=== PATIENT | female | born 1960 | race African-American/Black ===

== ENCOUNTER 2019-11-01 12:08 | Inpatient (IN) | payer OTHER ==
--- NOTE | 2019-11-01 12:53 | PDOC ---
History of Present Illness - General Chief Complaint: Blood Pressure Problem Stated Complaint: BLOOD PRESSURE PROBLEM Time Seen by Provider: 11/01/19 12:51 History Source: Patient Exam Limitations: No Limitations - History of Present Illness Initial Comments: 11/01/19 12:52 PCP: Marielena HPI: 59 yo F pmh htn presenting from PCP with hypertension in setting of not taking her home metoprolol 50mg before the appointment. Patient denies any symptoms whatsoever, stating she is just worried because the pressure is very high. She reports her pressure at home, when taking her metoprolol 50 mg daily fluctuate with the systolic ranging between 140 and 180. She states she knows s he should improve her diet and lose weight but she is now very anxious about the pressure. Denies any chest pain, nausea, vomiting, headache, changes in vision, tinnitus, weakness / numbness / tingling, abdominal or back pain, SOB. All: KNDA Meds: Metoprolol 50mg BID PMH: HTN PSH: Per chart Past History - Travel History Traveled outside of the country in the last 30 days: No Close contact w/someone who was outside of country & ill: No - Medical History Allergies/Adverse Reactions: Allergies Allergy/AdvReac Type Severity Reaction Status Date / Time No Known Allergies Allergy Verified 11/09/13 11:54 Home Medications: Ambulatory Orders Metformin HCl [Glucophage] 500 mg PO 11/01/19 Metoprolol Tartrate [Lopressor -] 50 mg PO BID 11/01/19 COPD: No HTN: Yes - Surgical History Abdominal Surgery: Yes Appendectomy: Yes - Reproductive History Is Patient Now?: No - Immunization History Immunization Up to Date: No - Psycho-Social/Smoking History Smoking History: Never smoked Have you smoked in the past 12 months: No Information on smoking cessation initiated: No - Substance Abuse Hx (Audit-C & DAST Scrn) How often the patient has a drink containing alcohol: Never Score: In Men: 4 or > Positive; In Women: 3 or > Positive: 0 Screen Result (Pos requires Nsg. Audit-10AR): Negative In the last yr the pt used illegal drug/Rx for NonMed reason: No Score: Yes response is considered Positive: 0 Screen Result (Positive result requires Nsg. DAST-10): Negative Review of Systems - Review of Systems Able to Perform ROS?: Yes Is the patient limited Nepali proficient: Yes Constitutional: No: Chills, Fever, Weakness HEENTM: No: Recent change in vision, Nose Congestion, Tinnitus, Throat Pain Respiratory: No: Cough, Orthopnea, Shortness of Breath, Wheezing, Productive cough Cardiac (ROS): No: Chest Pain, Edema, Irregular Heart Rate, Chest Tightness ABD/GI: No: Constipated, Diarrhea, Nausea, Vomiting : No: Burning, Dysuria, Frequency Musculoskeletal: No: Back Pain, Muscle Pain, Muscle Weakness, Neck Pain Integumentary: No: Bruising, Pruritus, Rash Neurological: No: Headache, Numbness, Tingling, Weakness, Unsteady Gait Psychiatric: No: Stressors, Change in Appetite Endocrine: No: Increased Thirst, Increased Urine, Change in Weight Hematologic/Lymphatic: No: Anemia, Blood Clots, Easy Bleeding All Other Systems: Reviewed and Negative *Physical Exam - Vital Signs Last Vital Signs Temp Pulse Resp BP Pulse Ox 98.3 F 70 16 203/100 H 99 11/01/19 12:11 11/01/19 12:11 11/01/19 12:11 11/01/19 12:11 11/01/19 12:11 - Physical Exam 11/01/19 12:52 Vitals reviewed, notable for hypertension 203/100 GEN: Well appearing, appears stated age, NAD, comfortable. AAOx3. HEENT: NCAT, EOMI, PERRL. Sclera anicteric, noninjected. No facial asymmetry. Moist mucous membranes. Normal voice. Trachea midline. CV: RRR, S1/S2, no murmurs / rubs / gallops appreciated. LUNG: CTABL, normal work of breathing. No wheezes, rales, rhonchi. No cough. Speaking full sentences. GI: Soft, NTND, +BS, no guarding, no rebound. No masses. EXTREMITIES: 2+ distal pulses. No clubbing / cyanosis / edema. No gross deformity in any extremity. SKIN: Warm, dry, no rashes appreciated, non-jaundiced. PSYCH: Normal mood and affect. Cooperative and appropriate. NEURO: CN grossly intact. Moving all extremities well. Normal strength and sensation grossly. Full Neuro: Strength 5+ biceps, triceps, intrinsic hand muscles, hip flexors / extensors / foot dorsiflexion / plantarflexion Sensation normal throughout to light touch Reflexes not assessed Romberg negative Hjlajf-wjvs-cpclti and heel-oseguera normal (+No dysmetria) Rapid alternating movements normal (No dysdiadokinesis) Pronator drift not assessed Gait normal Cranial nerves: CN 1: Not assessed CN 2: Normal visual jaime and acuity CN 3/4/6: EOMI CN 5: Normal facial sensation CN 7: Normal facial movement CN 8: Symmetric hearing soft sounds CN 9: Uvula midline and normal articulation CN 10: Uvula midline and normal articulation CN 11: Normal shrug / head turn strength CN 12: Normal tongue movement A&Ox3, normal remote and recent recall. ED Treatment Course - LABORATORY CBC & Chemistry Diagram: 11/01/19 16:45 11/01/19 16:45 Medical Decision Making - Medical Decision Making 11/01/19 12:52 59 yo F pmh htn presenting from PCP with hypertension in setting of not taking her home metoprolol 50mg before the appointment. History notable for elevated BP in setting of anxiety regarding pressure and holding home bp medication this morning, denies any symptoms bothering her. Exam notable for hypertension with otherwise normal vitals, normal neuro exam. - Patient s/p home Metoprolol 50mg approximately 1 hours ago Anticipated dispo: Home 11/01/19 16:37 Remains asymptomatic Given dose of hydrochlorothiazide Persistently hypertensive to 220+/100+ Labs, EKG, evening dose of metoprolol ordered 11/01/19 18:15 EKbpm, NSR, normal axis, normal intervals QTc 428, no ischemic changes 11/01/19 18:33 - Despite home medications and addition of hydrochlorothiazide remained hypertensive to 200s - Ordered for 10 Lopressor - Labs unremarkable aside from 1+ blood on UA Dispo: Med/Surg for medication optimization and persistent hypertension Discharge - Discharge Information Problems reviewed: Yes Clinical Impression/Diagnosis: Hypertension Qualifiers: Hypertension type: unspecified Qualified Code(s): I10 - Essential (primary) hypertension Condition: Stable Disposition: HOME - Admission No - Follow up/Referral Referrals: Fco Peguero MD [Primary Care Provider] - - Patient Discharge Instructions Patient Printed Discharge Instructions: DI for High Blood Pressure - Post Discharge Activity
[2019-11-01] MEDS ORDERED: HYDROCHLOROTHIAZIDE 25 MG TABLET (FP) PO ONE (14:47)
[2019-11-01] MEDS ORDERED: HYDROCHLOROTHIAZIDE 25 MG TABLET (FP) ONE (14:53)
--- NOTE | 2019-11-01 14:59 | PDOC ---
Documentation entered by Chanell Valerio SCRIBE, acting as scribe for Paulette Villareal MD. Paulette Villareal MD: This documentation has been prepared by the [email or web address] kenny Lincy, SCRIBE, under my direction and personally reviewed by me in its entirety. I confirm that the documentation accurately reflects all work, treatment, procedures, and medical decision making performed by me. Attending Attestation - Resident Resident Name: Jose MiguelYassine - ED Attending Attestation I have performed the following: I have examined & evaluated the patient, The case was reviewed & discussed with the resident, I agree w/resident's findings & plan, Exceptions are as noted - HPI HPI: 11/01/19 14:04 The patient is a 59-year-old female with a past medical history significant for HTN (on Metoprolol 500mg BID), HLT, DM, and obesity who presents to the emergency department from PCPs office for elevated blood pressure. The states she normally is adherent to medications, but was told not to take them recently, and frequently comes to the ED for elevated blood pressure. The patient presents today for elevated blood pressure, associated with nervousness secondary to increased blood pressure values. Denies chest pain, shortness of breath, headache, dizziness, visual changes. Per Dr. Espino, the patients blood pressure at the office was 230/130. The patient was given medication at the office, following the patient's blood pressure went down to 210/130. The patient was recommended to the ER by Dr. Peguero for evaluation. - Physicial Exam PE: 11/01/19 14:04 GENERAL: nontoxic-appearing, A/Ox4, no distress, answers questions appropriately, pleasant adult female, person of color, obese HEENT: PERRLA, EOMI, moist mucous membranes NECK/BACK: no midline ttp, no spinal stepoff or deformity, no hematoma, full ROM, neck supple CARDIOVASCULAR: regular rate/rhythm, no MGR, strong peripheral pulses, capillary refill <2 seconds, extremities wwp, no edema LUNGS/RESPIRATORY: no respiratory distress, CTAB GI/ABDOMEN: symmetric [id number], normoactive BS, soft, no ttp, no midline pulsatile masses : no CVA tenderness MSK/EXTREMITIES: no muscle atrophy, no acute deformity SKIN: warm and dry, no pallor, no jaundice, no rash, no pathologic-appearing bruising, no skin breakdown, no cuts, no lesions NEUROLOGICAL: GCS 15, CN II-XII grossly intact, 5/5 strength proximally and di stally, no facial droop. - Medical Decision Making 11/01/19 14:53 59YOF with HTN, has difficulty with adherence to medications at home, who did not take her normal antihypertensives and then had elevated BP today in here PCP's office, so was sent to ED for evaluation. Initial Vital Signs Temp Pulse Resp BP Pulse Ox 98.3 F 70 16 203/100 H 99 11/01/19 12:11 11/01/19 12:11 11/01/19 12:11 11/01/19 12:11 11/01/19 12:11 Most likely normal course of her chronic hypertension with expected course given her difficulty with home med adherence. 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 She is asymptomatic and workup is not indicated at this time but will re-check vitals after 1 hour to ensure BP is trending down after her metoprolol dose. Last Vital Signs Temp Pulse Resp BP Pulse Ox 98.3 F 57 L 19 223/99 H 100 11/01/19 12:11 11/01/19 13:55 11/01/19 13:55 11/01/19 13:55 11/01/19 13:55 11/01/19 14:56 BP has increased since patient arrived, considered amlodipine but patient's HR is in the high 50s, will give HCTZ PO instead and re-assess. Vital Signs - 24 hr 11/01/19 16:33 62 20 231/96 H 98 Patient's BP actually worsened after 2 medications, one of which is new to her. She requires workup and likely admission for severe HTN refractory to medications. Likely requires admission as BP is 231/96 at this time, may require antihypertensive drip. Provider Orders Category Date Time Status ELECTROCARDIOGRAM [CARD] Stat Cardiology 11/01/19 16:33 Ordered EKG needed NOW Care 11/01/19 16:34 Completed COMP METABOLIC PANEL Stat Lab 11/01/19 16:45 Completed COMPLETE BLOOD COUNT Stat Lab 11/01/19 16:45 Completed N-TERMINAL BNP Stat Lab 11/01/19 16:45 Completed PT/INR (PROTHROMBIN TIME) Stat Lab 11/01/19 16:45 Completed TROPONIN I ([facility]) Stat Lab 11/01/19 16:45 Completed UA ([facility]) ONLY Stat Lab 11/01/19 16:45 Completed Hydrochlorothiazide [Hctz -] Medication 11/01/19 14:53 Discontinued 25 mg .ROUTE .STK-MED ONE Hydrochlorothiazide [Hctz -] Medication 11/01/19 14:47 Discontinued 25 mg PO ONCE ONE Metoprolol Succinate [Toprol Xl -] Medication 11/01/19 16:35 Discontinued 50 mg PO ONCE ONE Metoprolol Tartrate Injection [Lopressor Injection -] Medication 11/01/19 18:22 Discontinued 10 mg IVPUSH ONCE ONE Metoprolol Tartrate [Lopressor -] Medication 11/01/19 16:35 Discontinued 25 mg PO ONCE ONE Metoprolol Tartrate [Lopressor -] Medication 11/01/19 17:14 Discontinued 50 mg .ROUTE .STK-MED ONE Metoprolol Tartrate [Lopressor -] Medication 11/01/19 16:37 Discontinued 50 mg PO ONCE ONE Saline Lock, Insert ONCE Phy Order 11/01/19 16:45 Ordered Discontinued Medications Generic Name Dose Route Start Last Admin Trade Name Freq PRN Reason Stop Dose Admin Hydrochlorothiazide 25 mg 11/01/19 14:47 11/01/19 14:56 Hctz - PO 11/01/19 14:48 25 mg ONCE ONE Administration Hydrochlorothiazide Confirm 11/01/19 14:53 Hctz - Administered 11/01/19 14:54 Dose 25 mg .ROUTE .STK-MED ONE Metoprolol Succinate 50 mg 11/01/19 16:35 Toprol Xl - PO 11/01/19 16:36 ONCE ONE Metoprolol Tartrate 25 mg 11/01/19 16:35 11/01/19 16:40 Lopressor - PO 11/01/19 16:36 Not Given ONCE ONE Metoprolol Tartrate 50 mg 11/01/19 16:37 11/01/19 17:20 Lopressor - PO 11/01/19 16:38 50 mg ONCE ONE Administration Metoprolol Tartrate Confirm 11/01/19 17:14 Lopressor - Administered 11/01/19 17:15 Dose 50 mg .ROUTE .STK-MED ONE Metoprolol Tartrate 10 mg 11/01/19 18:22 11/01/19 20:21 Lopressor Injection - IVPUSH 11/01/19 18:23 Not Given ONCE ONE Lab Results WBC 6.3 K/mm3 (4.0-10.0) 11/01/19 16:45 RBC 4.26 M/mm3 (3.60-5.2) 11/01/19 16:45 Hgb 12.6 GM/dL (10.7-15.3) 11/01/19 16:45 Hct 37.8 % (32.4-45.2) 11/01/19 16:45 MCV 88.7 fl (80-96) 11/01/19 16:45 MCH 29.5 pg (25.7-33.7) 11/01/19 16:45 MCHC 33.3 g/dl (32.0-36.0) 11/01/19 16:45 RDW 13.9 % (11.6-15.6) 11/01/19 16:45 Plt Count 107 K/MM3 (134-434) L D 11/01/19 16:45 MPV 12.6 fl (7.5-11.1) H 11/01/19 16:45 PT with INR 12.30 SEC (9.7-13.0) 11/01/19 16:45 INR 1.04 (0.83-1.09) 11/01/19 16:45 Sodium 140 mmol/L (136-145) 11/01/19 16:45 Potassium 4.2 mmol/L (3.5-5.1) 11/01/19 16:45 Chloride 104 mmol/L (98-107) 11/01/19 16:45 Carbon Dioxide 31 mmol/L (21-32) 11/01/19 16:45 Anion Gap 4 MMOL/L (8-16) L 11/01/19 16:45 BUN 14.0 mg/dL (7-18) 11/01/19 16:45 Creatinine 0.9 mg/dL (0.55-1.3) 11/01/19 16:45 Est GFR (CKD-EPI)AfAm 80.55 11/01/19 16:45 Est GFR (CKD-EPI)NonAf 69.50 11/01/19 16:45 Random Glucose 108 mg/dL (74-106) H 11/01/19 16:45 Calcium 9.4 mg/dL (8.5-10.1) 11/01/19 16:45 Total Bilirubin 0.8 mg/dL (0.2-1) 11/01/19 16:45 AST 30 U/L (15-37) 11/01/19 16:45 ALT 29 U/L (13-61) 11/01/19 16:45 Alkaline Phosphatase 83 U/L (45-117) 11/01/19 16:45 Troponin I < 0.02 ng/ml (0.00-0.05) 11/01/19 16:45 B-Natriuretic Peptide 263.1 pg/ml (5-125) H 11/01/19 16:45 Total Protein 8.0 g/dl (6.4-8.2) 11/01/19 16:45 Albumin 3.4 g/dl (3.4-5.0) 11/01/19 16:45 Urine Color Yellow 11/01/19 16:45 Urine Appearance Clear 11/01/19 16:45 Urine pH 8.0 (5.0-8.0) 11/01/19 16:45 Ur Specific [place] 1.009 (1.010-1.035) L 11/01/19 16:45 Urine Protein Negative (NEGATIVE) 11/01/19 16:45 Urine Glucose (UA) Negative (NEGATIVE) 11/01/19 16:45 Urine Ketones Negative (NEGATIVE) 11/01/19 16:45 Urine Blood 1+ (NEGATIVE) H 11/01/19 16:45 Urine Nitrite Negative (NEGATIVE) 11/01/19 16:45 Urine Bilirubin Negative (NEGATIVE) 11/01/19 16:45 Urine Urobilinogen 0.2 mg/dL (0.2-1.0) 11/01/19 16:45 Ur Leukocyte Esterase Negative (NEGATIVE) 11/01/19 16:45 Urine WBC (Auto) 4 /uL (0-25.8) 11/01/19 16:45 Urine RBC (Auto) 2 /uL (0-23.9) 11/01/19 16:45 Urine Casts (Auto) 0 /uL (0-3.1) 11/01/19 16:45 U Epithel Cells (Auto) 4 /uL (0-25.1) 11/01/19 16:45 Urine Bacteria (Auto) 238 /uL (0-1359) 11/01/19 16:45 Patient has been given another PO dose of metoprolol (her home evening dose). 11/01/19 18:00 Temperature Pulse Rate Pulse Rate [ 62 Left Radial] Respiratory 20 Rate Blood Pressure Blood Pressure 222/80 H [Right Arm] O2 Sat by Pulse 100 Oximetry (%) She is also given metoprolol IV push. Admission per resident note. Heart Score/ECG Review #1 11/01/19 17:27 Sinus rhythm, rate 57, normal axis and intervals, no ischemic ST-T changes Discharge - Discharge Information Problems reviewed: Yes Clinical Impression/Diagnosis: Hypertension Qualifiers: Hypertension type: unspecified Qualified Code(s): I10 - Essential (primary) hypertension Condition: Guarded - Admission Yes - Follow up/Referral - Patient Discharge Instructions - Post Discharge Activity
[2019-11-01] MEDS ORDERED: METOPROLOL TARTRATE 25 MG TABLET (FP) PO ONE (16:35)
[2019-11-01] MEDS ORDERED: METOPROLOL TARTRATE 50 MG TABLET (FP) PO ONE (16:37)
[2019-11-01] MEDS ORDERED: METOPROLOL TARTRATE 50 MG TABLET (FP) ONE (17:14)
[2019-11-01 17:47] LABS: HEMATOCRIT 37.8 % (32.4-45.2); HEMOGLOBIN 12.6 GM/dL (10.7-15.3); MCH 29.5 pg (25.7-33.7); MCHC 33.3 g/dl (32.0-36.0); MEAN CELL VOLUME 88.7 fl (80-96); RBC 4.26 M/mm3 (3.60-5.2); RDW 13.9 % (11.6-15.6); WHITE BLOOD COUNT 6.3 K/mm3 (4.0-10.0)
[2019-11-01 17:56] LABS: INR 1.04 (0.83-1.09); PROTHROMBIN TIME (PATIENT) 12.3 SEC (9.7-13.0)
[2019-11-01 18:02] LABS: EPI CELLS 4 /uL (0-25.1); HYALINE CASTS 0 /uL (0-3.1); URINE APPEARANCE CLEAR; URINE BACTERIA 238 /uL (0-1359); URINE BILIRUBIN NEGATIVE (NEGATIVE); URINE COLOR YELLOW; URINE GLUCOSE (UA) NEGATIVE (NEGATIVE); URINE KETONE NEGATIVE (NEGATIVE); URINE LEUK ESTERASE NEGATIVE (NEGATIVE); URINE NITRITE NEGATIVE (NEGATIVE); URINE PROTEIN NEGATIVE (NEGATIVE); URINE RBC 2 /uL (0-23.9); URINE UROBILINOGEN 0.2 mg/dL (0.2-1.0); URINE WBC 4 /uL (0-25.8)
[2019-11-01] MEDS ORDERED: METOPROLOL TARTRATE 5 MG/5 ML VIAL IVPUSH ONE (18:22)
[2019-11-01 18:23] LABS: ALBUMIN 3.4 g/dl (3.4-5.0); ALK PHOS 83 U/L (45-117); ANION GAP 4 MMOL/L (8-16); BILIRUBIN,TOTAL 0.8 mg/dL (0.2-1); CALCIUM 9.4 mg/dL (8.5-10.1); CHLORIDE 104 mmol/L (98-107); CO2 31 mmol/L (21-32); CREATININE 0.9 mg/dL (0.55-1.3); GLUCOSE,RANDOM 108 mg/dL (74-106); POTASSIUM 4.2 mmol/L (3.5-5.1); SGOT/AST 30 U/L (15-37); SGPT/ALT 29 U/L (13-61); SODIUM 140 mmol/L (136-145)
--- OUTSIDE RECORDS SUMMARY | 2019-11-01 19:45 | XMS ---
:1960 [facility] Care Team Providers Name Role Phone Chumaceiro, Fco Unavailable Unavailable Chumaceiro, Fco Unavailable Unavailable Chumaceiro, Fco Unavailable Unavailable Chumaceiro, Fco Unavailable Unavailable Chumaceiro, Fco Unavailable Unavailable Chumaceiro, Fco Unavailable Unavailable Chumaceiro, Fco Unavailable Unavailable Chumaceiro, Fco Unavailable Unavailable Re-disclosure Warning The records that you are about to access may contain information from federally- assisted alcohol or drug abuse programs. If such information is present, then the following federally mandated warning applies: This information has been disclosed to you from records protected by federal confidentiality rules (42 CFR part 2). The federal rules prohibit you from making any further disclosure of this information unless further disclosure is expressly permitted by the written consent of the person to whom it pertains or as otherwise permitted by 42 CFR part 2. A general authorization for the release of medical or other information is NOT sufficient for this purpose. The Federal rules restrict any use of the information to criminally investigate or prosecute any alcohol or drug abuse patient.The records that you are about to access may contain highly sensitive health information, the redisclosure of which is protected by Article 27-F of the [facility] Public Health law. If you continue you may haveaccess to information: Regarding HIV / AIDS; Provided by facilities licensed or operated by the [facility] Office of Mental Health; or Provided by the [facility] Office for People With Developmental Disabilities. If such information is present, then the following [facility] mandated warning applies: This information has been disclosed to you from confidential records which are protected by state law. State law prohibits you from making any further disclosure of this information without the specific written consent of the person to whom it pertains, or as otherwise permitted by law. Any unauthorized further disclosure in violation of state law may result in a fine or mcfp sentence or both. A general authorization for the release of medical or other information is NOT sufficient authorization for further disclosure. Encounters Encounter Providers Location Date Indications Data Source(s ) Attender: Fco 09/14/2019 [facility] ([facility] 12:00:00 AM [facility], ) EDT Office Attender: Fco 09/14/2019 12:00:00 AM EDT [facility] ([facility], ) Office Medications Medication Brand Start Product Dose Route Administrative Pharmacy [facility] Indications Reaction Description Data Name Date Form Instructions Instructions Source(s) Metoprolol METOPR // TABLET 30 complet METOP ROLOL [facility] (St Tartrate 25 OLOL:8 2017 ed [facility] Oral 08800 12:00: Medical, Tablet 00 AM ) METOPROLOL: EDT 033610 Insurance Providers Payer name Policy type Policy ID Covered Covered democrat's Policy P johana / Coverage democrat ID relationship to Zarate Inf ormation type zarate [facility] [id number] [facility] [id number] NATIONAL BENEFITS FUND Problems, Conditions, and Diagnoses Code Display Name Description Problem Effective Data Type Dates Source(s) B97.29 Other coronavirus OTHER CORONAVIRUS THE Problem 08/16 [facility] (St as the cause of CAUSE OF DISEASES 12:00:00 AM [facility] diseases CLASSIFIED ELSEWHERE EDT [facility]) classified elsewhere E11.9 Type 2 diabetes TYPE 2 DIABETES MELLITUS Problem 2017 [facility] ([address] mellitus without WITHOUT COMPLICATIONS 12:00:00 AM [facility] complications EDT [facility], [facility] ) R73.01 Impaired fasting IMPAIRED FASTING GLUCOSE Problem 08/12 [facility] (St glucose 12:00:00 AM [facility], ) R73.9 Hyperglycemia, HYPERGLYCEMIA, Problem 08/12/2017 [facility] (St unspecified UNSPECIFIED 12:00:00 AM [facility], ) E78.00 Pure PURE Problem 05/17/2016 [facility] (St hypercholesterole HYPERCHOLESTEROLEMIA 12:00:00 AM [facility]'s margret, unspecified [facility], ) I10 Essential ESSENTIAL (PRIMARY) Problem 05/17/2016 MED[facility] N (St (primary) HYPERTENSION 12:00:00 AM [facility] hypertension [facility]) Surgeries/Procedures Procedure Description Date Indications Data Source(s) Documentation of current 09/14/2019 [facility] ([facility] medications (procedure) 12:00:00 AM [facility]) Documentation of current 09/14/2019 [facility] ([facility] medications (procedure) 12:00:00 AM [facility]) OFFICE OUTPATIENT VISIT 15 09/14/2019 Felicity TANNER ([facility] MINUTES 12:00:00 AM [facility]) COLLECTION VENOUS BLOOD 09/14/2019 MEDG EN ([facility] VENIPUNCTURE 12:00:00 AM [facility]) Documentation of current 06/15/2018 MED [facility] ([facility] medications (procedure) 12:00:00 AM [facility]) Documentation of current 06/15/2018 [facility] ([facility] medications (procedure) 12:00:00 AM [facility]) OFFICE OUTPATIENT VISIT 15 06/15/2018 Felicity TANNER ([facility] MINUTES 12:00:00 AM [facility]) GLUC BLD GLUC MNTR DEV 06/15/2018 MED[facility] N ([facility] CLEARED FDA SPEC HOME USE 12:00:00 AM [facility], ) COLLECTION CAPILLARY BLOOD 06/15/2018 Felicity TANNER ([facility] SPECIMEN 12:00:00 AM [facility]) COLLECTION VENOUS BLOOD 06/15/2018 MED[facility] EN ([facility] VENIPUNCTURE 12:00:00 AM [facility]) OFFICE OUTPATIENT VISIT 15 03/08/2018 Felicity TANNER ([facility] MINUTES 12:00:00 AM [facility] ) GLUC BLD GLUC MNTR DEV 03/08/2018 MEDGE N ([facility] CLEARED FDA SPEC HOME USE 12:00:00 AM [facility], ) COLLECTION CAPILLARY BLOOD 03/08/2018 Felicity TANNER ([facility] SPECIMEN 12:00:00 AM [facility], ) Documentation of current 02/08/2018 MED [facility] ([facility] medications (procedure) 12:00:00 AM [facility], ) Documentation of current 02/08/2018 MED [facility] ([facility] medications (procedure) 12:00:00 AM [facility], ) Documentation of current 02/08/2018 [facility] ([facility] medications (procedure) 12:00:00 AM [facility], ) OFFICE OUTPATIENT VISIT 25 02/08/2018 Felicity TANNER ([facility] MINUTES 12:00:00 AM [facility], ) COLLECTION VENOUS BLOOD 02/08/2018 MED[facility] EN ([facility] VENIPUNCTURE 12:00:00 AM [facility], ) Administration of 11/11/2017 [facility] ([facility] influenza virus vaccine 12:00:00 AM [facility], ) OFFICE OUTPATIENT VISIT 25 11/11/2017 Felicity TANNER ([facility] MINUTES 12:00:00 AM [facility], ) INFLUENZA VACCINE 11/11/2017 [facility] ([facility] 12:00:00 AM [facility], ) GLUC BLD GLUC MNTR DEV 11/11/2017 MEDGE N ([facility] CLEARED FDA SPEC HOME USE 12:00:00 AM [facility], ) COLLECTION CAPILLARY BLOOD 11/11/2017 Felicity TANNER ([facility] SPECIMEN 12:00:00 AM [facility], ) COLLECTION VENOUS BLOOD 11/11/2017 MED[facility] EN ([facility] VENIPUNCTURE 12:00:00 AM [facility], ) Documentation of current 09/14/2017 [facility] ([facility] medications (procedure) 12:00:00 AM [facility], ) Documentation of current 09/14/2017 [facility] ([facility] medications (procedure) 12:00:00 AM [facility], ) Documentation of current 09/14/2017 [facility] ([facility]procedure[facility] 15 09/14/2017 Felicity EDGEN [facility] GLUC BLD GLUC MNTR DEV 09/14/2017 MEDGE N ([facility] CLEARED FDA SPEC HOME USE 12:00:00 AM EDT [facility], ) COLLECTION CAPILLARY BLOOD 09/14/2017 Felicity ROMANRosa ([facility] SPECIMEN 12:00:00 AM [facility], ) Documentation of current 08/12/2017 MED [facility] ([facility] medications (procedure) 12:00:00 AM EDT [facility], ) Documentation of current 08/12/2017 MED [facility] ([facility] medications (procedure) [facility] Documentation of current 08/12/2017 [facility] ([facility] medications (procedure) 12:00:00 [facility] Documentation of current 08/12/2017 [facility] ([facility] medications (procedure) 12:00:00 AM EDT [facility], ) OFFICE OUTPATIENT VISIT 15 08/12/2017 Felicity ROMANRosa ([facility] MINUTES 12:00:00 AM [facility], ) COLLECTION VENOUS BLOOD 08/12/2017 MED[facility] EN ([facility] OFFICE OUTPATIENT VISIT 15 05/12/2017 Felicity ROMANRosa ([facility] MINUTES 12:00:00 AM [facility], ) COLLECTION VENOUS BLOOD 05/12/2017 MED[facility] EN ([facility] VENIPUNCTURE 12:00:00 AM [facility], ) Documentation of current 07/09/2016 MED [facility] ([facility] medications (procedure) 12:00:00 AM EDT [facility], ) Documentation of current 07/09/2016 [facility] ([facility] medications (procedure) [facility]:00:[facility] Documentation of current 07/09/2016 [facility] ([facility] medications (procedure) [facility]:00:[facility] OFFICE OUTPATIENT VISIT 15 07/09/2016 Felicity CIRO ([facility] MINUTES 12:00:00 AM [facility], ) ECG ROUTINE ECG W/LEAST 12 07/09/2016 Felicity TANNER ([facility] LDS W/I&R 12:00:00 AM [facility]) COLLECTION VENOUS BLOOD 07/09/2016 MEDG EN ([facility] VENIPUNCTURE 12:00:00 AM [facility]) Documentation of current 06/16/2016 MED [facility] ([facility] medications (procedure) 12:00:00 AM [facility]) Documentation of current 06/16/2016 MED [facility] ([facility] medications (procedure) 12:00:00 AM EDT [facility]) Documentation of current 06/16/2016 MED [facility] ([facility] medications (procedure) 12:00:00 AM EDT [facility]) Documentation of current 06/16/2016 MED [facility] ([facility] medications (procedure) 12:00:00 AM [facility]) Documentation of current 06/16/2016 MED [facility] ([facility] medications (procedure) 12:00:00 AM EDT [facility]) OFFICE OUTPATIENT VISIT 15 06/16/2016 Felicity TANNER ([facility] MINUTES 12:00:00 AM [facility]) Documentation of current 05/17/2016 MED [facility] ([facility] medications (procedure) 12:00:00 AM EDT [facility]) Documentation of current 05/17/2016 MED [facility] ([facility] medications (procedure) 12:00:00 AM T [facility]) Documentation of current 05/17/2016 MED [facility] ([facility] medications (procedure) 12:00:00 AM T [facility]) OFFICE OUTPATIENT VISIT 15 05/17/2016 Felicity TANNER ([facility] MINUTES 12:00:00 AM [facility]) Results ID Date Data Source [id number] 09/05/2019 12:00:00 AM EDT [facility] Name Value Range Interpretation Code Description Data Donna rce(s) Supporting Document(s ) 2019-nCoV [facility] RNA XXX NATALIIA+probe- Imp This lab was ordered by [employer] and reported by [employer] ID Date Data Source [id number] 08/31/2019 12:00:00 AM EDT [facility] Name Value Range Interpretation Code Description Data Donna rce(s) Supporting Document(s ) 2019-nCoV [facility] RNA XXX NATALIIA+probe- Imp This lab was ordered by [employer] and reported by [employer] ID Date Data Source [id number] 08/29/2019 12:00:00 AM EDT [facility] Name Value Range Interpretation Code Description Data Donna rce(s) Supporting Document(s ) 2018-nCoV [facility] RNA XXX NATALIIA+probe- Imp This lab was ordered by [employer] and reported by [employer] ID Date Data Source [id number] 08/15/2019 12:00:00 AM EDT [facility] Name Value Range Interpretation Code Description Data Donna rce(s) Supporting Document(s ) 2018-nCoV [facility] RNA XXX NATALIIA+probe- Imp This lab was ordered by [employer] and reported by [employer] ID Date Data Source [id number] 08/09/2019 12:00:00 AM EDT [facility] Name Value Range Interpretation Code Description Data Donna rce(s) Supporting Document(s ) 2018-nCoV [facility] RNA XXX NATALIIA+probe- Imp This lab was ordered by [employer] and reported by [employer] ID Date Data Source [id number] 07/31/2019 12:00:00 AM EDT [facility] Name Value Range Interpretation Code Description Data Donna rce(s) Supporting Document(s ) 2018-nCoV [facility] RNA XXX NATALIIA+probe- Imp This lab was ordered by [employer] and reported by [employer] ID Date Data Source [id number] 07/27/2019 12:00:00 AM EDT [facility] Name Value Range Interpretation Code Description Data Donna rce(s) Supporting Document(s ) 2018-nCoV [facility] RNA XXX NATALIIA+probe- Imp This lab was ordered by [employer] and reported by [employer]. ID Date Data Source [id number] 07/25/2019 12:00:00 AM EDT [facility] Name Value Range Interpretation Code Description Data Donna rce(s) Supporting Document(s ) nCoV [facility] RNA XXX NATALIIA+probe- Imp This lab was ordered by [employer] and reported by [employer] ID Date Data Source [id number] 07/19/2019 12:00:00 AM EDT [facility] Name Value Range Interpretation Code Description Data Donna rce(s) Supporting Document(s ) 2018-nCoV [facility] RNA XXX NATALIIA+probe- Imp This lab was ordered by [employer] and reported by [employer] ID Date Data Source [id number] 07/17/2019 12:00:00 AM EDT [facility] Name Value Range Interpretation Code Description Data Donna rce(s) Supporting Document(s ) 2018-nCoV [facility] RNA XXX NATALIIA+probe- Imp This lab was ordered by [employer] and reported by [employer] ID Date Data Source [id number] 07/12/2019 12:00:00 AM EDT [facility] Name Value Range Interpretation Code Description Data Donna rce(s) Supporting Document(s ) 2018-nCoV [facility] RNA XXX NATALIIA+probe- Imp This lab was ordered by [employer] and reported by [employer] ID Date Data Source [id number] 07/10/2019 12:00:00 AM EDT [facility] Name Value Range Interpretation Code Description Data Donna rce(s) Supporting Document(s ) 2018-nCoV [facility] RNA XXX NATALIIA+probe- Imp This lab was ordered by [employer] and reported by [employer] ID Date Data Source [id number] 07/06/2019 12:00:00 AM EDT [facility] Name Value Range Interpretation Code Description Data Donna rce(s) Supporting Document(s ) 2018-nCoV [facility] RNA XXX NATALIIA+probe- Imp This lab was ordered by [employer] and reported by [employer] ID Date Data Source [id number] 06/15/2018 12:00:00 AM EDT [facility] Name Value Range Interpretation Code Description Data Donna rce(s) Supporting Document(s ) ID Date Data Source [id number] 06/15/2018 12:00:00 AM EDT [facility] Name Value Range Interpretation Code Description Data Donna rce(s) Supporting Document(s ) PDF Image . Normal (applies to [facility] (St non-numeric results) [facility]) ID Date Data Source [id number] 06/15/2018 12:00:00 AM EDT [facility] Name Value Range Interpretation Description Data Sup porting Code Source(s) Document(s ) Hemoglobin 6.4 % Above high normal [facility] (St A1c/Hemoglobin. [facility] total in Blood [facility], ) ID Date Data Source [id number] 06/15/2018 12:00:00 AM EDT [facility] ([facility]) Name Value Range Interpretation Description Data Sup porting Code Source(s) Document(s ) Bilirubin.c 0.10 mg/dL Normal (applies to [facility] ( St onjugated non-numeric [facility] [Mass/volum results) Medical, ) e] in Serum or Plasma ID Date Data Source [id number] 06/15/2018 12:00:00 AM EDT [facility] ([facility]) Name Value Range Interpretation Description Data Sup porting Code Source(s) Document(s ) Cholesterol 198 Normal (applies [facility] (St [Mass/volume] in mg/dL to non-numeric [facility] Serum or Plasma results) Medical, ) Triglyceride 89 mg/dL Normal (applies [facility] (St [Mass/volume] in to non-numeric [facility] Serum or Plasma results) [facility], ) VLDL Cholesterol 18 mg/dL Normal (applies [facility] (St Neri to non-numeric [facility] results) [facility], ) HDL Cholesterol 91 mg/dL Normal (applies [facility] ( St to non-numeric [facility] results) [facility], ) LDL Cholesterol 89 mg/dL Normal (applies [facility] ( St Calc to non-numeric [facility] results) [facility], ) ID Date Data Source [id number] 06/15/2018 12:00:00 AM EDT [facility] ([facility], ) Name Value Range Interpretation Description Data Sup porting Code Source(s) Document(s ) Glucose 90 mg/dL Normal (applies [facility] (St [Mass/volume] in to non-numeric [facility] Urine collected for results) [facility] duration Urea nitrogen 11 mg/dL Normal (applies [facility] (St [Mass/volume] in to non-numeric [facility] Serum or Plasma results) [facility], ) Creatinine 0.81 Normal (applies [facility] (St [Interpretation] in mg/dL to non-numeric [facility] Urine results) [facility], ) eGFR If NonAfricn 80 Normal (applies [facility] (St Am mL/min/1 to non-numeric [facility] .73 results) [facility], PC) eGFR If Africn Am 92 Normal (applies [facility] (St mL/min/1 to non-numeric [facility] .73 results) [facility], [facility]) BUN/Creatinine 14 Normal (applies [facility] (S t Ratio to non-numeric [facility] results) [facility], [facility]) Potassium 4.3 Normal (applies [facility] (St [Mass/volume] in mmol/L to non-numeric [facility] Blood results) [facility], [facility]) Sodium 142 Normal (applies [facility] (St [Moles/volume] in mmol/L to non-numeric [facility] Serum or Plasma results) [facility], [facility]) Chloride 102 Normal (applies [facility] (St [Moles/volume] in mmol/L to non-numeric [facility] Serum or Plasma results) [facility], [facility]) Calcium 9.4 Normal (applies [facility] (St [Moles/volume] in mg/dL to non-numeric [facility] Urine collected for results) Medical, unspecified PC) duration Carbon dioxide, 27 Normal (applies [facility] ( St total mmol/L to non-numeric [facility] [Moles/volume] in results) Medical, Serum or Plasma PC) Protein 7.3 g/dL Normal (applies [facility] (St [Mass/volume] in to non-numeric [facility] Serum or Plasma results) [facility], PC) Microalbumin 4.0 g/dL Normal (applies [facility] (St [Mass/time] in to non-numeric [facility] Urine collected for results) Medical, unspecified PC) duration A/G Ratio 1.2 Normal (applies [facility] (St to non-numeric [facility] results) [facility], PC) Globulin, Total 3.3 g/dL Normal (applies [facility] ( St to non-numeric [facility] results) [facility], PC) Bilirubin.total 0.3 Normal (applies [facility] ( St [Mass/volume] in mg/dL to non-numeric [facility] Serum or Plasma results) [facility], PC) Alkaline 73 IU/L Normal (applies [facility] (St phosphatase to non-numeric [facility] [Enzymatic results) Medical, activity/volume] in PC) Serum, Plasma or Blood Aspartate 26 IU/L Normal (applies [facility] (St aminotransferase to non-numeric [facility] [Enzymatic results) Medical, activity/volume] in PC) Serum or Plasma Alanine 20 IU/L Normal (applies [facility] (St aminotransferase to non-numeric [facility] [Enzymatic results) Medical, activity/volume] in ) Serum or Plasma ID Date Data Source [id number] 06/15/2018 12:00:00 AM EDT [facility], ) Name Value Range Interpretation Description Data Sup porting Code Source(s) Document(s ) Leukocytes 4.4 Normal (applies [facility] (St [#/volume] in x10E3/uL to non-numeric [facility] Blood by results) Medical, ) Automated count Erythrocytes 4.16 Normal (applies [facility] (St [#/volume] in x10E6/uL to non-numeric [facility] Blood by results) Medical, ) Automated count Hemoglobin 12.0 Normal (applies [facility] (St [Mass/volume] in g/dL to non-numeric [facility] Blood results) Medical, ) Hematocrit 36.8 % Normal (applies [facility] (St [Volume to non-numeric [facility] Fraction] of results) [facility], ) Blood by Automated count MCH 28.8 pg Normal (applies [facility] (St to non-numeric [facility] results) [facility], ) MCV 89 fL Normal (applies [facility] (St to non-numeric [facility] results) [facility], ) MCHC 32.6 Normal (applies [facility] (St g/dL to non-numeric [facility] results) [facility], ) RDW 14.3 % Normal (applies [facility] (St to non-numeric [facility] results) [facility], ) Platelets 132 Below low normal [facility] (St [#/area] in x10E3/uL [facility] Blood by [facility], ) Microscopy high power field Neutrophils [#] 42 % Normal (applies [facility] ( St in Body fluid by to non-numeric [facility] Manual count results) [facility], ) Lymphs 47 % Normal (applies [facility] (St to non-numeric [facility] results) Medical, ) Monocytes 8 % Normal (applies [facility] (St [#/volume] in to non-numeric [facility] Cord blood results) [facility], ) Eos 2 % Normal (applies [facility] (St to non-numeric [facility] results) [facility], ) Basos 1 % Normal (applies [facility] (St to non-numeric [facility] results) Medical, ) Neutrophils 1.8 Normal (applies [facility] (St (Absolute) x10E3/uL to non-numeric [facility] results) Medical, ) Lymphs 2.1 Normal (applies [facility] (St (Absolute) x10E3/uL to non-numeric [facility] results) Medical, ) Monocytes(Absolu 0.4 Normal (applies [facility] (St te) x10E3/uL to non-numeric [facility] results) [facility], PC) Eos (Absolute) 0.1 Normal (applies [facility] (S t x10E3/uL to non-numeric [facility] results) [facility], [facility]) Baso (Absolute) 0.0 Normal (applies [facility] ( St x10E3/uL to non-numeric [facility] results) Medical, ) Immature 0 % Normal (applies [facility] (St Granulocytes to non-numeric [facility] results) Medical, ) Immature Grans 0.0 Normal (applies [facility] (S t (Abs) x10E3/uL to non-numeric [facility] results) [facility], ) ID Date Data Source [id number] 02/08/2018 12:00:00 AM EST [facility], ) Name Value Range Interpretation Code Description Data Donna rce(s) Supporting Document(s ) ID Date Data Source [id number] 02/08/2018 12:00:00 AM EST [facility] Name Value Range Interpretation Code Description Data Donna rce(s) Supporting Document(s ) PDF Image . Normal (applies to [facility] (St non-numeric results) [facility], ) ID Date Data Source [id number] 02/08/2018 12:00:00 AM EST [facility] Name Value Range Interpretation Description Data Sup porting Code Source(s) Document(s ) Hemoglobin 6.5 % Above high normal [facility] (St A1c/Hemoglobin. [facility] total in Blood [facility], ) ID Date Data Source [id number] 11/11/2017 12:00:00 AM EDT [facility] ([facility]) Name Value Range Interpretation Code Description Data Donna rce(s) Supporting Document(s ) ID Date Data Source [id number] 11/11/2017 12:00:00 AM EDT [facility] Name Value Range Interpretation Code Description Data Donna rce(s) Supporting Document(s ) PDF Image . Normal (applies to [facility] (St non-numeric results) [facility], ) ID Date Data Source [id number] 11/11/2017 12:00:00 AM EDT [facility] ([facility], ) Name Value Range Interpretation Description Data Sup porting Code Source(s) Document(s ) Hemoglobin 7.1 % Above high normal [facility] (St A1c/Hemoglobin. [facility] total in Blood [facility], ) ID Date Data Source [id number] 11/11/2017 12:00:00 AM EDT [facility] ([facility], ) Name Value Range Interpretation Description Data Sup porting Code Source(s) Document(s ) Bilirubin.c 0.09 mg/dL Normal (applies to [facility] ( St onjugated non-numeric [facility] [Mass/volum results) Medical, ) e] in Serum or Plasma ID Date Data Source [id number] 11/11/2017 12:00:00 AM EDT [facility] ([facility], ) Name Value Range Interpretation Description Data Sup porting Code Source(s) Document(s ) Cholesterol 176 Normal (applies [facility] (St [Mass/volume] in mg/dL to non-numeric [facility] Serum or Plasma results) Medical, ) Triglyceride 70 mg/dL Normal (applies [facility] (St [Mass/volume] in to non-numeric [facility] Serum or Plasma results) Medical, ) HDL Cholesterol 80 mg/dL Normal (applies MEDGEN ( St to non-numeric [facility] results) Medical, ) VLDL Cholesterol 14 mg/dL Normal (applies MEDGEN (St Neri to non-numeric [facility] results) Medical, ) LDL Cholesterol 82 mg/dL Normal (applies MEDGEN ( St Calc to non-numeric [facility] results) Medical, ) ID Date Data Source [id number] 11/11/2017 12:00:00 AM EDT [facility] ([facility], ) Name Value Range Interpretation Description Data Sup porting Code Source(s) Document(s ) Glucose 122 Above high MEDGEN (St [Mass/volume] in mg/dL normal [facility] Urine collected for Medical, unspecified PC) duration Urea nitrogen 16 mg/dL Normal (applies [facility] (St [Mass/volume] in to non-numeric [facility] Serum or Plasma results) Medical, PC) Creatinine 0.74 Normal (applies [facility] (St [Interpretation] in mg/dL to non-numeric [facility] Urine results) Medical, PC) eGFR If NonAfricn 90 Normal (applies MEDGEN (St Am mL/min/1 to non-numeric [facility] .73 results) Medical, PC) eGFR If Africn Am 103 Normal (applies MED[facility] (St mL/min/1 to non-numeric [facility] .73 results) Medical, PC) BUN/Creatinine 22 Normal (applies [facility] (S t Ratio to non-numeric [facility] results) Medical, PC) Sodium 141 Normal (applies [facility] (St [Moles/volume] in mmol/L to non-numeric [facility] Serum or Plasma results) Medical, PC) Potassium 3.6 Normal (applies [facility] (St [Mass/volume] in mmol/L to non-numeric [facility] Blood results) Medical, PC) Chloride 103 Normal (applies [facility] (St [Moles/volume] in mmol/L to non-numeric [facility] Serum or Plasma results) Medical, PC) Carbon dioxide, 25 Normal (applies MEDGEN ( St total mmol/L to non-numeric [facility] [Moles/volume] in results) Medical, Serum or Plasma PC) Calcium 9.2 Normal (applies [facility] (St [Moles/volume] in mg/dL to non-numeric [facility] Urine collected for results) Medical, unspecified PC) duration Protein 7.3 g/dL Normal (applies [facility] (St [Mass/volume] in to non-numeric [facility] Serum or Plasma results) Medical, PC) Microalbumin 3.9 g/dL Normal (applies [facility] (St [Mass/time] in to non-numeric [facility] Urine collected for results) Medical, unspecified PC) duration A/G Ratio 1.1 Below low normal [facility] ([facility], [facility]) Globulin, Total 3.4 g/dL Normal (applies MEDGEN ( St to non-numeric [facility] results) Medical, PC) Bilirubin.total 0.2 Normal (applies MEDGEN ( St [Mass/volume] in mg/dL to non-numeric [facility] Serum or Plasma results) Medical, ) Alkaline 79 IU/L Normal (applies MEDGEN (St phosphatase to non-numeric [facility] [Enzymatic results) Medical, activity/volume] in PC) Serum, Plasma or Blood Aspartate 26 IU/L Normal (applies MED[facility] (St aminotransferase to non-numeric [facility] [Enzymatic results) Medical, activity/volume] in PC) Serum or Plasma Alanine 24 IU/L Normal (applies [facility] (St aminotransferase to non-numeric [facility] [Enzymatic results) Medical, activity/volume] in PC) Serum or Plasma ID Date Data Source [id number] 08/12/2017 12:00:00 AM EDT [facility] ([facility], ) Name Value Range Interpretation Code Description Data Donna rce(s) Supporting Document(s ) ID Date Data Source [id number] 08/12/2017 12:00:00 AM EDT [facility] ([facility], ) Name Value Range Interpretation Description Data Sup porting Code Source(s) Document(s ) Hemoglobin 7.6 % Above high normal MED[facility] (St A1c/Hemoglobin. [facility] total in Blood [facility], ) ID Date Data Source [id number] 08/12/2017 12:00:00 AM EDT [facility] ([facility], ) Name Value Range Interpretation Code Description Data Donna rce(s) Supporting Document(s ) PDF Image . Normal (applies to MEDGEN (St non-numeric results) [facility], ) ID Date Data Source [id number] 08/12/2017 12:00:00 AM EDT [facility] ([facility], ) Name Value Range Interpretation Description Data Sup porting Code Source(s) Document(s ) Glucose 172 mg/dL Above high normal [facility] (St [Mass/volume] [facility] in Urine Medical, ) collected for unspecified duration Urea nitrogen 12 mg/dL Normal (applies [facility] (St [Mass/volume] to non-numeric [facility] in Serum or results) Medical, ) Plasma Creatinine 0.89 Normal (applies [facility] (St [Interpretation mg/dL to non-numeric [facility] ] in Urine results) Medical, ) eGFR If Africn 83 Normal (applies [facility]GEN (S t Am mL/min/1. to non-numeric [facility] 73 results) Medical, ) eGFR If 72 Normal (applies MED[facility] (St NonAfricn Am mL/min/1. to non-numeric [facility] 73 results) Medical, ) BUN/Creatinine 13 Normal (applies [facility] (S t Ratio to non-numeric [facility] results) Medical, ) Sodium 142 Normal (applies [facility] (St [Moles/volume] mmol/L to non-numeric [facility] in Serum or results) Medical, ) Plasma Potassium 4.3 Normal (applies [facility] (St [Mass/volume] mmol/L to non-numeric [facility] in Blood results) Medical, ) Chloride 101 Normal (applies [facility] (St [Moles/volume] mmol/L to non-numeric [facility] in Serum or results) Medical, ) Plasma Carbon dioxide, 28 mmol/L Normal (applies [facility]GEN ( St total to non-numeric [facility] [Moles/volume] results) Medical, ) in Serum or Plasma Calcium 9.4 mg/dL Normal (applies [facility] (St [Moles/volume] to non-numeric [facility] in Urine results) [facility], ) collected for unspecified duration ID Date Data Source [id number] 05/12/2017 12:00:00 AM EDT [facility] ([facility], ) Name Value Range Interpretation Code Description Data Donna rce(s) Supporting Document(s ) ID Date Data Source [id number] 05/12/2017 12:00:00 AM EDT [facility] ([facility] Name Value Range Interpretation Description Data Sup porting Code Source(s) Document(s ) Hemoglobin 7.3 % Above high normal [facility] (St A1c/Hemoglobin. [facility] total in Blood Medical, ) ID Date Data Source [id number] 05/12/2017 12:00:00 AM EDT [facility] ([facility] Name Value Range Interpretation Code Description Data Donna rce(s) Supporting Document(s ) PDF Image . Normal (applies to [facility] (St non-numeric results) [facility], ) ID Date Data Source [id number] 05/12/2017 12:00:00 AM EDT [facility] ([facility] Name Value Range Interpretation Description Data Sup porting Code Source(s) Document(s ) Bilirubin.c 0.11 mg/dL Normal (applies to MEDGEN ( St onjugated non-numeric [facility] [Mass/volum results) Medical, ) e] in Serum or Plasma ID Date Data Source [id number] 05/12/2017 12:00:00 AM EDT [facility] ([facility]) Name Value Range Interpretation Description Data Sup porting Code Source(s) Document(s ) Cholesterol 212 Above high normal [facility] (St [Mass/volume] in mg/dL [facility] Serum or Plasma Medical, ) Triglyceride 104 Normal (applies [facility] (St [Mass/volume] in mg/dL to non-numeric [facility] Serum or Plasma results) Medical, ) HDL Cholesterol 75 mg/dL Normal (applies [facility] ( St to non-numeric [facility] results) Medical, ) VLDL Cholesterol 21 mg/dL Normal (applies MED[facility] (St Neri to non-numeric [facility] results) Medical, ) LDL Cholesterol 116 Above high normal [facility] (St Calc mg/dL [facility], ) ID Date Data Source [id number] 05/12/2017 12:00:00 AM EDT [facility] ([facility], ) Name Value Range Interpretation Description Data Sup porting Code Source(s) Document(s ) Glucose 156 Above high [facility] (St [Mass/volume] in mg/dL normal [facility] Urine collected for Medical, unspecified PC) duration Urea nitrogen 14 mg/dL Normal (applies [facility] (St [Mass/volume] in to non-numeric [facility] Serum or Plasma results) Medical, ) Creatinine 0.80 Normal (applies [facility] (St [Interpretation] in mg/dL to non-numeric [facility] Urine results) Medical, ) eGFR If NonAfricn 82 Normal (applies MED[facility] (St Am mL/min/1 to non-numeric [facility] .73 results) Medical, PC) eGFR If Africn Am 95 Normal (applies [facility] (St mL/min/1 to non-numeric [facility] .73 results) Medical, PC) BUN/Creatinine 18 Normal (applies [facility] (S t Ratio to non-numeric [facility] results) Medical, ) Sodium 137 Normal (applies [facility] (St [Moles/volume] in mmol/L to non-numeric [facility] Serum or Plasma results) Medical, PC) Chloride 99 Normal (applies [facility] (St [Moles/volume] in mmol/L to non-numeric [facility] Serum or Plasma results) Medical, PC) Potassium 4.0 Normal (applies [facility] (St [Mass/volume] in mmol/L to non-numeric [facility] Blood results) Medical, PC) Calcium 9.3 Normal (applies [facility] (St [Moles/volume] in mg/dL to non-numeric [facility] Urine collected for results) Medical, unspecified PC) duration Carbon dioxide, 26 Normal (applies [facility] ( St total mmol/L to non-numeric [facility] [Moles/volume] in results) Medical, Serum or Plasma PC) Protein 7.4 g/dL Normal (applies [facility] (St [Mass/volume] in to non-numeric [facility] Serum or Plasma results) Medical, ) Microalbumin 4.0 g/dL Normal (applies [facility] (St [Mass/time] in to non-numeric [facility] Urine collected for results) Medical, unspecified PC) duration A/G Ratio 1.2 Normal (applies [facility] (St to non-numeric [facility] results) Medical, PC) Globulin, Total 3.4 g/dL Normal (applies [facility] ( St to non-numeric [facility] results) Medical, PC) Bilirubin.total 0.5 Normal (applies [facility] ( St [Mass/volume] in mg/dL to non-numeric [facility] Serum or Plasma results) Medical, PC) Alkaline 96 IU/L Normal (applies [facility] (St phosphatase to non-numeric [facility] [Enzymatic results) Medical, activity/volume] in PC) Serum, Plasma or Blood Aspartate 30 IU/L Normal (applies [facility] (St aminotransferase to non-numeric [facility] [Enzymatic results) Medical, activity/volume] in PC) Serum or Plasma Alanine 23 IU/L Normal (applies [facility] (St aminotransferase to non-numeric [facility] [Enzymatic results) Medical, activity/volume] in PC) Serum or Plasma ID Date Data Source [id number] 05/12/2017 12:00:00 AM EDT [facility] ([facility], ) Name Value Range Interpretation Description Data Sup porting Code Source(s) Document(s ) Leukocytes 4.8 Normal (applies [facility] (St [#/volume] in x10E3/uL to non-numeric [facility] Blood by results) [facility], ) Automated count Erythrocytes 4.43 Normal (applies [facility] (St [#/volume] in x10E6/uL to non-numeric [facility] Blood by results) [facility], ) Automated count Hemoglobin 13.1 Normal (applies [facility] (St [Mass/volume] in g/dL to non-numeric [facility] Blood results) [facility], ) Hematocrit 38.2 % Normal (applies [facility] (St [Volume to non-numeric [facility] Fraction] of results) [facility], ) Blood by Automated count MCV 86 fL Normal (applies [facility] (St to non-numeric [facility] results) [facility], ) MCH 29.6 pg Normal (applies [facility] (St to non-numeric [facility] results) [facility], ) MCHC 34.3 Normal (applies [facility] (St g/dL to non-numeric [facility] results) [facility], ) Platelets 153 Normal (applies MED[facility] (St [#/area] in x10E3/uL to non-numeric [facility] Blood by results) [facility], ) Microscopy high power field RDW 14.1 % Normal (applies [facility] (St to non-numeric [facility] results) [facility], ) Neutrophils [#] 45 % Normal (applies MEDGEN ( St in Body fluid by to non-numeric [facility] Manual count results) [facility], ) Lymphs 44 % Normal (applies [facility] (St to non-numeric [facility] results) [facility], ) Monocytes 9 % Normal (applies [facility] (St [#/volume] in to non-numeric [facility] Cord blood results) [facility], ) Eos 2 % Normal (applies [facility] (St to non-numeric [facility] results) [facility], ) Basos 0 % Normal (applies [facility] (St to non-numeric [facility] results) [facility], ) Neutrophils 2.1 Normal (applies [facility] (St (Absolute) x10E3/uL to non-numeric [facility] results) [facility], ) Lymphs 2.1 Normal (applies [facility] (St (Absolute) x10E3/uL to non-numeric [facility] results) [facility], ) Monocytes(Absolu 0.4 Normal (applies MEDGEN (St te) x10E3/uL to non-numeric [facility] results) [facility], ) Eos (Absolute) 0.1 Normal (applies [facility]GEN (S t x10E3/uL to non-numeric [facility] results) Medical, ) Baso (Absolute) 0.0 Normal (applies MED[facility] ( St x10E3/uL to non-numeric [facility] results) [facility], ) Immature Grans 0.0 Normal (applies [facility] (S t (Abs) x10E3/uL to non-numeric [facility] results) Medical, ) Immature 0 % Normal (applies [facility] (St Granulocytes to non-numeric [facility] results) [facility], ) ID Date Data Source [id number] 07/09/2016 12:00:00 AM EDT [facility] ([facility], ) Name Value Range Interpretation Description Data Sup porting Code Source(s) Document(s ) Bilirubin.c 0.10 mg/dL Normal (applies to MEDGEN ( St onjugated non-numeric [facility] [Mass/volum results) Medical, ) e] in Serum or Plasma ID Date Data Source [id number] 07/09/2016 12:00:00 AM EDT [facility] ([facility], ) Name Value Range Interpretation Description Data Sup porting Code Source(s) Document(s ) Cholesterol 218 Above high normal [facility] (St [Mass/volume] in mg/dL [facility] Serum or Plasma [facility], ) Triglyceride 103 Normal (applies [facility] (St [Mass/volume] in mg/dL to non-numeric [facility] Serum or Plasma results) Medical, ) HDL Cholesterol 87 mg/dL Normal (applies [facility] ( St to non-numeric [facility] results) [facility], ) VLDL Cholesterol 21 mg/dL Normal (applies [facility] (St Neri to non-numeric [facility] results) [facility], ) LDL Cholesterol 110 Above high normal [facility] (St Calc mg/dL [facility], ) ID Date Data Source [id number] 07/09/2016 12:00:00 AM EDT [facility] ([facility], ) Name Value Range Interpretation Description Data Sup porting Code Source(s) Document(s ) WBC 0-5 Normal (applies to [facility] (St non-numeric [facility] results) Medical, ) RBC 0-2 Normal (applies to [facility] (St non-numeric [facility] results) Medical, PC) Bacteria Few Normal (applies to [facility] (St [Presence] in non-numeric [facility] Prostatic fluid results) Medical, PC) by Light microscopy Epithelial 0-10 Normal (applies to [facility] (St Cells (non non-numeric [facility] renal) results) Medical, PC) ID Date Data Source [id number] 07/09/2016 12:00:00 AM EDT [facility] ([facility] Name Value Range Interpretation Description Data Sup porting Code Source(s) Document(s ) Specific gravity 1.006 Normal (applies [facility] (St of Pericardial to non-numeric [facility] fluid by results) Medical, Refractometry PC) pH of Lower 7.5 Normal (applies [facility] (St respiratory to non-numeric [facility] specimen results) Medical, PC) Appearance of Clear Normal (applies [facility] (St Abdomen to non-numeric [facility] results) Medical, PC) Urine-Color Yellow Normal (applies [facility] (St to non-numeric [facility] results) Medical, PC) Protein Negative Normal (applies [facility] (St [Mass/volume] in to non-numeric [facility] Lower results) Medical, respiratory PC) specimen WBC Esterase Trace Abnormal MED[facility] (St (applies to [facility] non-numeric Medical, results) PC) Ketones Negative Normal (applies [facility] (St [Presence] in to non-numeric [facility] Blood by Tablet results) Medical, PC) Glucose Negative Normal (applies [facility] (St [Mass/volume] in to non-numeric [facility] Urine collected results) Medical, for unspecified PC) duration Bilirubin Negative Normal (applies [facility] (St [Presence] in to non-numeric [facility] Peritoneal fluid results) Medical, PC) Occult Blood Trace Abnormal MED[facility] (St (applies to [facility] non-numeric Medical, results) PC) Urobilinogen,Josiane 0.2 EU/dL Normal (applies [facility] (St i-Qn to non-numeric [facility] results) Medical, PC) Nitrite, Urine Negative Normal (applies [facility] (S t to non-numeric [facility] results) Medical, PC) Microscopic See below: Normal (applies [facility] (St Examination to non-numeric [facility] results) Medical, PC) ID Date Data Source [id number] 07/09/2016 12:00:00 AM EDT [facility] ([facility] Name Value Range Interpretation Description Data Sup porting Code Source(s) Document(s ) Glucose, Serum 104 Above high MEDGEN (St mg/dL normal [facility], ) Urea nitrogen 11 mg/dL Normal (applies [facility] (St [Mass/volume] in to non-numeric [facility] Serum or Plasma results) Medical, ) Creatinine, Serum 0.84 Normal (applies [facility] (St mg/dL to non-numeric [facility] results) Medical, ) eGFR If NonAfricn 77 Normal (applies MEDGEN (St Am mL/min/1 to non-numeric [facility] .73 results) Medical, ) eGFR If Africn Am 89 Normal (applies [facility] (St mL/min/1 to non-numeric [facility] .73 results) Medical, ) BUN/Creatinine 13 Normal (applies [facility] (S t Ratio to non-numeric [facility] results) Medical, ) Sodium 137 Normal (applies [facility] (St [Moles/volume] in mmol/L to non-numeric [facility] Serum or Plasma results) Medical, ) Chloride 98 Normal (applies [facility] (St [Moles/volume] in mmol/L to non-numeric [facility] Serum or Plasma results) Medical, ) Potassium, Serum 4.3 Normal (applies [facility] (St mmol/L to non-numeric [facility] results) Medical, ) Carbon dioxide, 23 Normal (applies MEDGEN ( St total mmol/L to non-numeric [facility] [Moles/volume] in results) Medical, Serum or Plasma PC) Calcium, Serum 9.3 Normal (applies [facility]GEN (S t mg/dL to non-numeric [facility] results) Medical, ) Albumin, Serum 4.0 g/dL Normal (applies [facility]GEN (S t to non-numeric [facility] results) Medical, ) Protein 7.7 g/dL Normal (applies [facility] (St [Mass/volume] in to non-numeric [facility] Serum or Plasma results) Medical, ) A/G Ratio 1.1 Below low normal [facility] ([facility], ) Globulin, Total 3.7 g/dL Normal (applies MEDGEN ( St to non-numeric [facility] results) Medical, ) Alkaline 94 IU/L Normal (applies MEDGEN (St Phosphatase, S to non-numeric [facility] results) Medical, ) Bilirubin.total 0.3 Normal (applies [facility]GEN ( St [Mass/volume] in mg/dL to non-numeric [facility] Serum or Plasma results) Medical, ) Aspartate 26 IU/L Normal (applies [facility] (St aminotransferase to non-numeric [facility] [Enzymatic results) Medical, activity/volume] in ) Serum or Plasma Alanine 26 IU/L Normal (applies [facility] (St aminotransferase to non-numeric [facility] [Enzymatic results) Medical, activity/volume] in ) Serum or Plasma ID Date Data Source [id number] 07/09/2016 12:00:00 AM EDT [facility] ([facility], ) Name Value Range Interpretation Description Data Sup porting Code Source(s) Document(s ) Leukocytes 4.8 Normal (applies MEDGEN (St [#/volume] in x10E3/uL to non-numeric [facility] Blood by results) Medical, ) Automated count Erythrocytes 4.69 Normal (applies MEDGEN (St [#/volume] in x10E6/uL to non-numeric [facility] Blood by results) [facility], ) Automated count Hemoglobin 13.1 Normal (applies [facility]GEN (St [Mass/volume] in g/dL to non-numeric [facility] Blood results) [facility], ) Hematocrit 40.9 % Normal (applies [facility] (St [Volume to non-numeric [facility] Fraction] of results) [facility], ) Blood by Automated count MCH 27.9 pg Normal (applies [facility]GEN (St to non-numeric [facility] results) Medical, ) MCV 87 fL Normal (applies [facility]GEN (St to non-numeric [facility] results) [facility], ) MCHC 32.0 Normal (applies [facility]GEN (St g/dL to non-numeric [facility] results) [facility], ) RDW 14.7 % Normal (applies [facility]GEN (St to non-numeric [facility] results) [facility], ) Neutrophils [#] 40 % Normal (applies MEDGEN ( St in Body fluid by to non-numeric [facility] Manual count results) [facility], ) Platelets 164 Normal (applies MEDGEN (St [#/area] in x10E3/uL to non-numeric [facility] Blood by results) [facility], ) Microscopy high power field Lymphs 52 % Normal (applies [facility]GEN (St to non-numeric [facility] results) [facility], ) Monocytes 6 % Normal (applies MEDGEN (St [#/volume] in to non-numeric [facility] Cord blood results) [facility], ) Eos 1 % Normal (applies MEDGEN (St to non-numeric [facility] results) [facility], ) Neutrophils 2.0 Normal (applies MEDGEN (St (Absolute) x10E3/uL to non-numeric [facility] results) [facility]) Basos 1 % Normal (applies MEDGEN (St to non-numeric [facility] results) [facility]) Lymphs 2.5 Normal (applies MEDGEN (St (Absolute) x10E3/uL to non-numeric [facility] results) [facility]) Monocytes(Absolu 0.3 Normal (applies MEDGEN (St te) x10E3/uL to non-numeric [facility] results) [facility]) Eos (Absolute) 0.1 Normal (applies MEDGEN (S t x10E3/uL to non-numeric [facility] results) [facility], ) Baso (Absolute) 0.0 Normal (applies MEDGEN ( St x10E3/uL to non-numeric [facility] results) [facility], ) Immature 0 % Normal (applies MEDGEN (St Granulocytes to non-numeric [facility] results) [facility]) Immature Grans 0.0 Normal (applies MEDGEN (S t (Abs) x10E3/uL to non-numeric [facility] results) [facility]) Procedure Social History Code Duration Value Status Description Data Source(s ) Smoking 09/14/2019 social drinking completed social drinking no M EDGEN (St 12:00:00 AM EDT no smoking smoking [facility], ) Smoking 09/14/2019 Unknown if ever completed Unknown if ever MEDG EN (St 12:00:00 AM EDT smoked smoked [facility], ) Vital Signs ID Date Data Source UNK Name Value Range Interpretation Code Description Data Source(s) Body mass index 38.3 kg/m2 38.3 kg/m2 MEDGEN (S t (BMI) [Ratio] [facility], ) Diastolic blood 86 mm[Hg] 86 mm[Hg] MEDGEN (S t pressure [facility] , ) Systolic blood 140 mm[Hg] 140 mm[Hg] MEDGEN (St pressure [facility]) Body weight 223 lb 223 lb MED[facility] ([facility]) Body height 64 in 64 in MEDGEN ([facility]) Body mass index 36.6 kg/m2 36.6 kg/m2 [facility] (S t (BMI) [Ratio] [facility] Diastolic blood 100 mm[Hg] 100 mm[Hg] MEDGEN (S [facility]) Systolic blood 160 mm[Hg] 160 mm[Hg] MED[facility] ([facility]) Body weight 213 lb 213 lb MED[facility] ([facility]) Body height 64 in 64 in [facility] ([facility]) Body mass index 37.4 kg/m2 37.4 kg/m2 MED[facility] (S t (BMI) [Ratio] [facility] Diastolic blood 92 mm[Hg] 92 mm[Hg] MEDGEN (S [facility]) Systolic blood 160 mm[Hg] 160 mm[Hg] MEDGEN ([facility]) Body weight 218 lb 218 lb MED[facility] ([facility]) Body height 64 in 64 in MEDGEN ([facility]) Heart rate 81 /min 81 /min [facility] ([facility]) Inhaled oxygen 98 % 98 % MED[facility] ([facility]) Body mass index 37.8 kg/m2 37.8 kg/m2 MEDGEN (S t (BMI) [Ratio] [facility] Diastolic blood 120 mm[Hg] 120 mm[Hg] MEDGEN (S [facility]) Systolic blood 180 mm[Hg] 180 mm[Hg] MEDGEN ([facility]) Body weight 220 lb 220 lb MEDGEN ([facility]) Body height 64 in 64 in MEDGEN ([facility]) Heart rate 81 /min 81 /min [facility] ([facility]) Inhaled oxygen 98 % 98 % MEDGEN ([facility]) Body mass index 40 kg/m2 40 kg/m2 MEDGEN (S t (BMI) [Ratio] [facility] Diastolic blood 100 mm[Hg] 100 mm[Hg] MEDGEN (S t pressure [facility] , ) Systolic blood 160 mm[Hg] 160 mm[Hg] MEDGEN ([facility]) Body weight 233 lb 233 lb MEDGEN ([facility]) Body height 64 in 64 in MEDGEN ([facility]) Heart rate 76 /min 76 /min MEDGEN ([facility]) Respiratory rate 14 /min 14 /min MEDGEN ( [facility]) Inhaled oxygen 99 % 99 % MEDGEN ([facility], ) Body mass index 40.5 kg/m2 40.5 kg/m2 MEDGEN (S t (BMI) [Ratio] [facility], ) Diastolic blood 80 mm[Hg] 80 mm[Hg] MEDGEN (S t [facility] [place] , ) Systolic blood 150 mm[Hg] 150 mm[Hg] MEDGEN ([facility] [place] , ) Body weight 236 lb 236 lb MEDGEN ([facility]) Body height 64 in 64 in MEDGEN ([facility]) Heart rate 81 /min 81 /min MEDGEN ([facility]) Respiratory rate 14 /min 14 /min MEDGEN ( [facility]) Inhaled oxygen 99 % 99 % MEDGEN ([facility], ) Body mass index 40.5 kg/m2 40.5 kg/m2 MEDGEN (S t (BMI) [Ratio] [facility], ) Diastolic blood 80 mm[Hg] 80 mm[Hg] MEDGEN (S t pressure [facility] [place]) Systolic blood 140 mm[Hg] 140 mm[Hg] MEDGEN ([facility] [place] , ) Body weight 236 lb 236 lb MEDGEN ([facility]) Body height 64 in 64 in MEDGEN ([facility]) Body mass index 40 kg/m2 40 kg/m2 MEDGEN (S t (BMI) [Ratio] [facility], ) Diastolic blood 90 mm[Hg] 90 mm[Hg] MEDGEN (S t pressure [facility] , ) Systolic blood 148 mm[Hg] 148 mm[Hg] MEDGEN ([facility]) Body weight 233 lb 233 lb MEDGEN ([facility]) Body height 64 in 64 in [facility] ([facility]) Body mass index 40.3 kg/m2 40.3 kg/m2 MEDGEN (S t (BMI) [Ratio] [facility] [place] Diastolic blood 100 mm[Hg] 100 mm[Hg] MEDGEN (S t pressure [facility] [place]) Systolic blood 150 mm[Hg] 150 mm[Hg] MEDGEN ([facility]) Body weight 235 lb 235 lb MEDGEN ([facility]) Body height 64 in 64 in [facility] ([facility]) Body mass index 39.6 kg/m2 39.6 kg/m2 MEDGEN (S t (BMI) [Ratio] [facility] [place] Diastolic blood 110 mm[Hg] 110 mm[Hg] MEDGEN (S t [facility] [place]) Systolic blood 160 mm[Hg] 160 mm[Hg] MEDGEN ([facility]) Body weight 231 lb 231 lb MEDGEN ([facility]) Body height 64 in 64 [facility] Body mass index 39.5 kg/m2 39.5 kg/m2 MEDGEN (S t (BMI) [Ratio] [facility] [place] Diastolic blood 98 mm[Hg] 98 mm[Hg] MEDGEN (S t [facility] [place]) Systolic blood 150 mm[Hg] 150 mm[Hg] MEDGEN ([facility]) Body weight 230 lb 230 lb MEDGEN ([facility]) Body height 64 in 64 in [facility] ([facility])
[2019-11-01 19:52] LABS: MEAN PLT VOLUME 12.6 fl (7.5-11.1)
[2019-11-01 19:54] LABS: PLATELET COUNT 107 K/MM3 (134-434)
--- NOTE | 2019-11-01 20:03 | PN ---
Teaching Attending Note Name of Resident: Ivelisse Cramer ATTENDING PHYSICIAN STATEMENT I saw and evaluated the patient. I reviewed the resident's note and discussed the case with the resident. I agree with the resident's findings and plan as documented. SUBJECTIVE: Patient is a 59 year old woman with a PMH of Arthritis, Appendectomy, Obesity, NIDDM and HTN presenting from PCP with hypertension in setting of not taking her home Metoprolol 50 mg before the appointment. Patient denies any symptoms - stating she is just worried because the pressure is very high. She reports her pressure at home, when taking her metoprolol 50 mg daily fluctuate with the systolic ranging between 140 and 180. She states she knows she should improve her diet and lose weight but she is now very anxious about the pressure. Patient denies chest pain, shortness of breath, abdominal pain, headache, palpitations, dizziness, fever, chills, nausea, vomiting, diarrhea, constipation, dysuria, frequency, urgency, melena, hematochezia or hematuria. Denies alcohol, tobacco or illicit drug use. No sick contacts or recent travels. Family history of HTN in father and sister. OBJECTIVE: Alert Vital Signs Period Temp Pulse Resp BP Sys/Veras Pulse Ox Last 24 Hr 98.3 F 57-70 16-20 203-231/80-100 98-100 HEENT: No Jaundice, eye redness or discharge, PERRLA, EOMI. Normocephalic, atraumatic. External ears are normal and hearing is grossly intact. No nasal discharge. Neck: Supple, nontender. No palpable adenopathy or thyromegaly. No JVD Chest: Good effort. Clear to auscultation and percussion. Heart: Regular. No S3, rub or murmur Abdomen: Not distended, soft, nontender and no HSM. No rebound or guarding. Normal bowel sounds. Ext: Peripheral pulses intact. No leg edema. Skin: Warm and dry. No petechiae, rash or ecchymosis. Neuro: Alert. Oriented x3. CN 2-12 grossly intact. Sensation grossly intact in all four extremities and DTR are symmetric. Psych: Appropriate mood and affect. Good insight. Home Medications Medication Instructions Recorded Metformin HCl [Glucophage] 500 mg PO 11/01/19 Metoprolol Tartrate [Lopressor -] 50 mg PO BID 11/01/19 Abnormal Lab Results 11/01/19 11/01/19 11/01/19 16:45 16:45 16:45 Plt Count 107 L D MPV 12.6 H Anion Gap 4 L Random Glucose 108 H Ur Specific [place] 1.009 L Urine Blood 1+ H Current Medications Generic Name Dose Route Start Last Admin Trade Name Marquis PRN Reason Stop Dose Admin Amlodipine Besylate 5 mg 11/02/19 10:00 Norvasc - PO DAILY [facility] Enoxaparin Sodium 40 mg 11/02/19 10:00 Lovenox - SQ DAILY [facility] Hydrochlorothiazide 12.5 mg 11/02/19 10:00 Hctz - PO DAILY [facility] Nicardipine HCl 25 mg/ 250 mls @ 25 mls/hr 11/01/19 22:30 Dextrose IVPB TITR MARIN Protocol 2.5 MG/HR Metoprolol Tartrate 50 mg 11/02/19 10:00 Lopressor - PO DAILY [facility] ASSESSMENT AND PLAN: 1. Hypertensive urgency - No acute abnormality on CXR shows cardiomegaly with no evidence of acute lung disease. Viral testing for COVID-19 ordered and patient placed on airborne, droplet and contact isolation. ER staff prescribed IV Metoprolol 10 mg and PO Metoprolol 50 mg for the patient. EKG shows sinus bradycardia at 57/minute and QTc [address]-T wave changes. Initial troponin is negative. Will admit to telemetry, trend troponin, get fasting lipids, CPK, LDH, monitor platelets and repeat urinalysis. Will give her Benadryl 25 mg PO stat and add Lisinopril 20 mg q HS and HCTZ 12.5 mg q am to her regimen. Needs outpatient workup to rule out secondary HTN. Unclear if hematuria is related to uncontrolled HTN. Will start a Nicardipine drip since her systolic BP remains >200 mmHg. Subsequently, will revise regimen to ensure [id number] excellent BP control. Patient counseled on the injurious effects of uncontrolled hypertension. Nonpharmacologic measures to control hypertension like weight loss, salt restriction and exercise stressed. Importance of adherence to nadira atment regimen and attainment of normotension emphasized. 2. DM Get HbA1c. For now, we will hold the home diabetes drugs and implement sliding scale insulin regimen. Provide comprehensive diabetes care with patient teaching and counseling about the importance of adherence to prescribed diabetes regimen, euglycemia, eye care and foot care. 3. Obesity Counseled on the risks associated with obesity. Will provide patient all the necessary assistance, counseling and positive reinforcement to facilitate weight loss. Consult silk screen processor. 4. DVT prophylaxis - Lovenox 40 mg SQ q 24 hours. 5. Advance directives - Full code
[2019-11-01] MEDS ORDERED: amLODIPine BESYLATE 5 MG TABLET (FP) ONE (20:15)
[2019-11-01] MEDS ORDERED: amLODIPine BESYLATE 10 MG TABLET (FP) PO ONE (20:51)
--- NOTE | 2019-11-01 21:38 | HP ---
CHIEF COMPLAINT: high BPs PCP: Dr. Peguero HISTORY OF PRESENT ILLNESS: 59yo F with PMHx of HTN and lifestyle-controlled DM presents from her PCP clinic with BP >220/>90. Patient normally takes metoprolol 25 BID without skipping any doses, but this morning she did not take any because she was told to come to the doc office on an empty stomach for a full physician exam. Once she presented to the office, they sent her directly to the ED due to her PBs. Patient also used to take a medication for her "sugars" but stopped taking it some time ago because her doctor told her that her sugars are well controlled. Patient denied any associated symptoms including no changes in vision, dizziness, headaches, NVD, constipation, dysuria, polyuria, CP, SOB, palpitations. Only endorsed anxiety over being in the hospital. Patient also said that she had COVID in April with symptoms of anosmia, ageusia, and anorexia. ER course was notable for: (1) repeated BPs >220/>90 and initial MAP 134 (2) EKG showing sinus bradycardia (3) CXR showing generalized haziness (4) physical exam remarkable for systolic murmur, inspiratory sinus arrhythmia, trace edematous lower legs (5) Plts 107 (6) UA with 1+ blood Recent Travel: none PAST MEDICAL HISTORY: as per HPI PAST SURGICAL HISTORY: appendectomy L&D Family History: mother young in a car accident father: HTN several of her sisters: HTN OBGyn History: menopause at 51 regular periods prior to menopause 2 vaginal deliveries to two healthy children one miscarriage of twins one miscarriage of single Social History: Smoking: denied Alcohol: occasionally Drugs: denied Allergies No Known Allergies Allergy (Verified 11/09/13 11:54) HOME MEDICATIONS: Home Medications Medication Instructions Recorded Metformin HCl [Glucophage] 500 mg PO 11/01/19 Metoprolol Tartrate [Lopressor -] 50 mg PO BID 11/01/19 REVIEW OF SYSTEMS as per HPI PHYSICAL EXAMINATION Vital Signs - 24 hr 11/01/19 11/01/19 11/01/19 12:11 13:55 16:33 Temperature 98.3 F Pulse Rate 70 Pulse Rate [ 57 L 62 Left Radial] Respiratory 16 19 20 Rate Blood Pressure 203/100 H Blood Pressure 223/99 H 231/96 H [Right Arm] O2 Sat by Pulse 99 100 98 Oximetry (%) 11/01/19 11/01/19 11/01/19 18:00 19:10 20:19 Temperature Pulse Rate Pulse Rate [ 62 59 L 62 Left Radial] Respiratory 20 18 18 Rate Blood Pressure Blood Pressure 222/80 H 219/94 H 222/97 H [Right Arm] O2 Sat by Pulse 100 98 Oximetry (%) GENERAL: F, appears mildly younger than stated age, overweight body habitus, AAOx4 showing mild signs of distress HEAD: Normal with no signs of trauma, good dentition EYES: PERRL, direct and consensual pupillary reflexes intact bilaterally, extraocular movements intact bilaterally, sclera anicteric EARS, NOSE, THROAT: Moist mucous membranes. NECK: No lymphadenopathy or masses noted LUNGS: CTAB HEART: inspiratory sinus arrhythmia, normal S1 and S2 with faint systolic murmur ABDOMEN: Soft, nontender, moderately protuberant, hypoactive bowel sounds EXTREMITIES: 2+ radial and dorsalis pedis pulses, warm to touch bilaterally, nontender to palpation, trace peripheral edema appreciated on bilateral lower legs posteriorly, no active lesions or ulcers noted on feet bilaterally including interdigital web spaces NEUROLOGICAL: Cranial nerves II-XII grossly intact. Normal speech with symmetricalfacial movements. Sensation intact bilaterally. Full visual jaime intact with no detected visual field deficits PSYCHIATRIC: Cooperative and interactive, responds appropriately. Good eye contact. Nervous mood and affect congruent with stated mood SKIN: no rashes or lesions noted Abnormal Lab Results 11/01/19 11/01/19 11/01/19 16:45 16:45 16:45 Plt Count 107 L D MPV 12.6 H Anion Gap 4 L Random Glucose 108 H B-Natriuretic Peptide 263.1 H Ur Specific [place] 1.009 L Urine Blood 1+ H ASSESSMENT/PLAN: 59yo F with PMHx of HTN and lifestyle-controlled DM presents from her PCP clinic with BP >220/>90. Patient was subjectively asymptomatic, but initial ED workup was remarkable for (1) repeated BPs >220/>90 and initial MAP 134, (2) EKG showing sinus bradycardia, (3) CXR showing generalized haziness, (4) physical exam remarkable for systolic murmur, inspiratory sinus arrhythmia, trace edematous lower legs, (5) Plts 107, and (6) UA with 1+ blood. #Hypertensive emergency > patient takes BP meds regularly - BP likely poorly managed by PCP > BP decreased to 190/87 [id number] after following PO meds: 50 metoprolol, 25 HCTZ, 10 amlodipine, 20 lisinopril > patient EKG with sinus bradycardia - remained conservative with BB up- titration > gave benadryl 25 to calm patient down - start nicardipine drip - start the following BP management *mornings: 12.5 HCTZ, 50 lopressor, 5 amlodipine *evenings: 20 lisinopril - ordered add-on BNP (?CHF) - ordered CPK, LDH, repeat trop - ordered repeat UA in AM - ordered lipid profile #DM > patient currently not taking any DM meds - BGMs ACHS #FEN - no standing fluids - replete lytes PRN - diabetic/sodium controlled diet #PPX - DVT: lovenox #Dispo: telemetry Family Medical History Family History: As Documented Visit type - Emergency Visit Emergency Visit: Yes ED Registration Date: 11/01/19 Care time: The patient presented to the Emergency Department on the above date and was hospitalized for further evaluation of their emergent condition. - New Patient This patient is new to me today: Yes Date on this admission: 11/02/19 - Critical Care Critical Care patient: No ATTENDING PHYSICIAN STATEMENT I saw and evaluated the patient. I reviewed the resident's note and discussed the case with the resident. I agree with the resident's findings and plan as documented. SUBJECTIVE: OBJECTIVE: ASSESSMENT AND PLAN:
[2019-11-01 22:07] LABS: N-TERMINAL BNP 263.1 pg/ml (5-125)
[2019-11-01] MEDS ORDERED: diphenhydrAMINE HCL 25 MG CAPSULE (FP) PO STA (22:29)
[2019-11-01] MEDS ORDERED: LISINOPRIL 20 MG TABLET (FP) PO STA (22:29)
[2019-11-01] MEDS ORDERED: NICARDIPINE 25 MG in DEXTROSE 5%-WATER - 240 ML IVPB SCH (22:30)
[2019-11-01] MEDS ORDERED: diphenhydrAMINE HCL 25 MG CAPSULE (FP) PO ONE (22:41)
[2019-11-01] MEDS ORDERED: LISINOPRIL 20 MG TABLET (FP) ONE (22:41)
[2019-11-02 07:21] LABS: BASO % 0.5 % (0-2.0); EOS % 0.7 % (0-4.5); HEMATOCRIT 42.1 % (32.4-45.2); HEMOGLOBIN 13.7 GM/dL (10.7-15.3); LYMPH % 38.7 % (8-40); MCH 28.9 pg (25.7-33.7); MCHC 32.6 g/dl (32.0-36.0); MEAN CELL VOLUME 88.6 fl (80-96); MEAN PLT VOLUME 12.8 fl (7.5-11.1); MONO % 7.2 % (3.8-10.2); NEUT % 52.9 % (42.8-82.8); PLATELET COUNT 124 K/MM3 (134-434); RBC 4.75 M/mm3 (3.60-5.2); RDW 13.8 % (11.6-15.6); WHITE BLOOD COUNT 6.5 K/mm3 (4.0-10.0)
[2019-11-02 07:24] LABS: ALBUMIN 3.7 g/dl (3.4-5.0); BILIRUBIN,TOTAL 0.8 mg/dL (0.2-1); BLOOD UREA NITROGEN 12.5 mg/dL (7-18); CALCIUM 9.7 mg/dL (8.5-10.1); CHOLESTEROL 233 mg/dL (50-200); CREATININE 0.9 mg/dL (0.55-1.3); HDL CHOLESTEROL 116 mg/dL (40-60); LDL CHOLESTEROL (ONLY SJRH) 104 mg/dL (5-100); MAGNESIUM 2.1 mg/dL (1.8-2.4); PHOSPHOROUS 3.4 mg/dL (2.5-4.9); POTASSIUM 3.3 mmol/L (3.5-5.1); TOT PROT 8.8 g/dl (6.4-8.2); TRIGLYCERIDES 107 mg/dL (0-150)
[2019-11-02 09:35] LABS: LDH 433 U/L (84-246)
[2019-11-02] MEDS ORDERED: amLODIPine BESYLATE 5 MG TABLET (FP) PO SCH (10:00)
[2019-11-02] MEDS ORDERED: METOPROLOL TARTRATE 50 MG TABLET (FP) PO SCH (10:00)
[2019-11-02] MEDS ORDERED: HYDROCHLOROTHIAZIDE 12.5 MG CAPSULE (FP) PO SCH (10:00)
[2019-11-02] MEDS ORDERED: METOPROLOL TARTRATE 50 MG TABLET (FP) ONE (10:15)
[2019-11-02] MEDS ORDERED: amLODIPine BESYLATE 5 MG TABLET (FP) ONE (10:15)
[2019-11-02] MEDS: HYDROCHLOROTHIAZIDE 12.5 MG CAPSULE (FP) PO SCH (10:19)
[2019-11-02] MEDS: ENOXAPARIN NA (PORCINE) 40 MG/0.4 ML DISP.SYRIN SQ SCH (10:19)
[2019-11-02] MEDS: amLODIPine BESYLATE 5 MG TABLET (FP) PO SCH (10:19)
[2019-11-02 10:54] LABS: EPI CELLS 7 /uL (0-25.1); HYALINE CASTS 0 /uL (0-3.1); URINE APPEARANCE CLOUDY; URINE BACTERIA 162 /uL (0-1359); URINE BILIRUBIN NEGATIVE (NEGATIVE); URINE COLOR YELLOW; URINE GLUCOSE (UA) NEGATIVE (NEGATIVE); URINE KETONE NEGATIVE (NEGATIVE); URINE LEUK ESTERASE NEGATIVE (NEGATIVE); URINE NITRITE NEGATIVE (NEGATIVE); URINE PROTEIN NEGATIVE (NEGATIVE); URINE RBC 6 /uL (0-23.9); URINE UROBILINOGEN 0.2 mg/dL (0.2-1.0); URINE WBC 11 /uL (0-25.8)
--- NOTE | 2019-11-02 11:48 | ECHO ---
Version: 1 Name: GAUDENCIO DODSON Exam: Adult Echocardiogram Study Date: 11/02/2019, 8:58 AM Age: 59 Years MMode/2D Measurements & Calculations IVSd: 0.72 cm LVIDs: 2.9 cm LVIDd: 4.6 cm LVPWd: 0.95 cm LAV (MOD-bp): 60.0 ml LVOT diam: 2.05 cm Ao root diam: 2.6 cm LA dimension: 3.2 cm Doppler Measurements & Calculations MV E max job: 108.3 cm/sec Med E/e': 17.3 MV A max job: 82.3 cm/sec Med Peak E' Job: 6.3 cm/sec MV E/A: 1.32 Lat E/e': 13.7 Lat Peak E' Job: 7.9 cm/sec Ao max P.3 mmHg LV V1 mean: 60.8 cm/sec Ao V2 max: 213.8 cm/sec LV V1 mean P.69 mmHg PI end-d job: 103.6 cm/sec Left Ventricle The left ventricular size, thickness and function are normal. Ejection Fraction = 55-60%. The transm itral spectral Doppler flow pattern is normal for age. Right Ventricle The right ventricle is normal in size and function. Atria Normal left and right atrial size and function. Mitral Valve The mitral valve is normal in structure and function. There is no mitral valve stenosis. There is tr vadim mitral regurgitation. Tricuspid Valve The tricuspid valve is normal in structure and function. There is mild tricuspid regurgitation. Righ t ventricular systolic pressure is normal. Aortic Valve The aortic valve is trileaflet. No hemodynamically significant valvular aortic stenosis. No aortic regurgitation is present. Pulmonic Valve The pulmonic valve is not well seen, but is grossly normal. There is no pulmonic valvular stenosis. Trace to mild pulmonic valvular regurgitation. Great Vessels The aortic root is normal size. Pericardium/Pleura There is no pericardial effusion. Summary Statements The left ventricular size, thickness and function are normal Ejection Fraction = 55-60%. The right ventricle is normal in size and function. There is trace mitral regurgitation. There is mild tricuspid regurgitation. Right ventricular systolic pressure is normal. There is no pericardial effusion. MD Vences *Kenneth 11/02/2019, 11:47 AM Ordering Physician: Ivelisse Cramer Performed By: Zaira Anglin
--- NOTE | 2019-11-02 12:38 | EKG ---
Test Reason : Blood Pressure : / mmHG Vent. Rate : 057 BPM Atrial Rate : 057 BPM P-R Int : 150 ms QRS Dur : 086 ms QT Int : 440 ms P-R-T Axes : 054 028 035 degrees QTc Int : 428 ms SINUS BRADYCARDIA NONSPECIFIC T WAVE ABNORMALITY ABNORMAL ECG NO PREVIOUS ECGS AVAILABLE Confirmed by JERRI OSPINA MD ([id number]) on 11/02/2019 12:37:50 PM Referred By: Confirmed By:JERRI OSPINA MD
--- NOTE | 2019-11-02 12:53 | PN ---
Teaching Attending Note Name of Resident: Nimco Rousseau ATTENDING PHYSICIAN STATEMENT I saw and evaluated the patient. I reviewed the resident's note and discussed the case with the resident. I agree with the resident's findings and plan as documented. SUBJECTIVE: pt seen and examined OBJECTIVE: Last Vital Signs Temp Pulse Resp BP Pulse Ox 98.3 F 66 18 167/88 99 11/01/19 12:11 11/02/19 11:25 11/02/19 11:25 11/02/19 11:25 11/02/19 11:25 CBCD WBC 6.5 K/mm3 (4.0-10.0) 11/02/19 06:38 RBC 4.75 M/mm3 (3.60-5.2) 11/02/19 06:38 Hgb 13.7 GM/dL (10.7-15.3) 11/02/19 06:38 Hct 42.1 % (32.4-45.2) 11/02/19 06:38 MCV 88.6 fl (80-96) 11/02/19 06:38 MCHC 32.6 g/dl (32.0-36.0) 11/02/19 06:38 RDW 13.8 % (11.6-15.6) 11/02/19 06:38 Plt Count 124 K/MM3 (134-434) L 11/02/19 06:38 MPV 12.8 fl (7.5-11.1) H 11/02/19 06:38 CMP Sodium 138 mmol/L (136-145) 11/02/19 06:38 Potassium 3.3 mmol/L (3.5-5.1) L 11/02/19 06:38 Chloride 101 mmol/L (98-107) 11/02/19 06:38 Carbon Dioxide 31 mmol/L (21-32) 11/02/19 06:38 Anion Gap 7 MMOL/L (8-16) L 11/02/19 06:38 BUN 12.5 mg/dL (7-18) 11/02/19 06:38 Creatinine 0.9 mg/dL (0.55-1.3) 11/02/19 06:38 Calcium 9.7 mg/dL (8.5-10.1) 11/02/19 06:38 Total Bilirubin 0.8 mg/dL (0.2-1) 11/02/19 06:38 AST 26 U/L (15-37) 11/02/19 06:38 ALT 28 U/L (13-61) 11/02/19 06:38 Alkaline Phosphatase 93 U/L (45-117) 11/02/19 06:38 Total Protein 8.8 g/dl (6.4-8.2) H 11/02/19 06:38 Albumin 3.7 g/dl (3.4-5.0) 11/02/19 06:38 Active Medications Amlodipine Besylate (Norvasc -) 10 mg PO DAILY [facility] Last Admin: 11/02/19 10:19 Dose: 10 mg Documented by: Enoxaparin Sodium (Lovenox -) 40 mg SQ DAILY [facility] Last Admin: 11/02/19 10:19 Dose: 40 mg Documented by: Hydrochlorothiazide (Hctz -) 25 mg PO DAILY [facility] Last Admin: 11/02/19 10:19 Dose: 25 mg Documented by: Lisinopril (Prinivil) 20 mg PO DAILY [facility] Metoprolol Tartrate (Lopressor -) 50 mg PO BID [facility] Nitroglycerin (Nitro-Bid 2% Paste -) 1 inch TD Q6HPO PRN PRN Reason: HYPERTENSION ASSESSMENT AND PLAN: 59yo F with PMHx of HTN and lifestyle-controlled DM sent by PCP office for elevated BP and admitted for hypertensive emergency # Hypertensive Emergency -resolving -pul edemea on XR, sat>100% on room air, asypmtomatic -now bP 160-180s/70s-90s -off nicardipine drip -doesn't check BP at home, and was on metoprolol only, missed dose after was told to be NPO for annual physical. -started HCTZ, metoprolol, Lisinopril, amlodipine -ECHO EF 55-60%, LVH -discussed lifestyle modification, DASH diet, medication compliance in length. -replete electrolytes -tele monitor DM DVT prophylaxis
[2019-11-02] MEDS ORDERED: NITROGLYCERIN 2% OINTMENT - 1GM PACKET TD PRN (13:32)
--- NOTE | 2019-11-02 13:56 | PN ---
Physical Exam: SUBJECTIVE: Patient seen and examined at bedside, reports that she feels well, her home BP is not this high, usually within 140s-150s. Denies any changes invison, headache, chest pain, SOB, abdominal pain, nausea, vomiting. OBJECTIVE: Vital Signs Period Temp Pulse Resp BP Sys/Veras Pulse Ox Last 24 Hr 56-75 16-20 155-231/64-99 98-100 GENERAL: AAOx3, in no acute distress HEENT: NCAT, PERRLA, EOMI, sclera anicteric, conjunctiva clear, oropharynx clear w/o exudates. MMM. NECK: Normal ROM, supple, no lymphadenopathy, JVD, or masses LUNGS: CTABL no wheezes/ rhonchi/ rales. No distress, speaks in full sentences. No increased work of breathing. HEART: RRR, normal S1 S2, 4/6 Systolic ejection murmur along the left sternal border, no /R/G, peripheral pulses 2+ and equal b/l ABDOMEN: Soft, non-tender, + BS. No guarding or rebound. No hepatomegaly or splenomegaly. MSK: ROM WNL, NO CVA tenderness EXTREMITIES: Normal inspection. No peripheral edema. No clubbing or cyanosis. NEUROLOGICAL: CN II-XII intact. Normal speech, gait not observed, no focal sensorimotor deficits. PSYCH: Normal mood, normal affect. SKIN: Warm, Dry, normal turgor, no rashes or lesions noted Laboratory Results - last 24 hr 11/01/19 11/01/19 11/01/19 16:45 16:45 16:45 WBC 6.3 RBC 4.26 Hgb 12.6 Hct 37.8 MCV 88.7 MCH 29.5 MCHC 33.3 RDW 13.9 Plt Count 107 L D MPV 12.6 H Absolute Neuts (auto) Neutrophils % Lymphocytes % Monocytes % Eosinophils % Basophils % Nucleated RBC % PT with INR 12.30 INR 1.04 Sodium Potassium Chloride Carbon Dioxide Anion Gap BUN Creatinine Est GFR (CKD-EPI)AfAm Est GFR (CKD-EPI)NonAf Random Glucose Hemoglobin A1c % Calcium Phosphorus Magnesium Total Bilirubin AST ALT Alkaline Phosphatase LD Total Creatine Kinase Creatine Kinase Index CK-MB (CK-2) Troponin I B-Natriuretic Peptide Total Protein Albumin Triglycerides Cholesterol Total LDL Cholesterol HDL Cholesterol Urine Color Yellow Urine Appearance Clear Urine pH 8.0 Ur Specific [place] 1.009 L Urine Protein Negative Urine Glucose (UA) Negative Urine Ketones Negative Urine Blood 1+ H Urine Nitrite Negative Urine Bilirubin Negative Urine Urobilinogen 0.2 Ur Leukocyte Esterase Negative Urine WBC (Auto) 4 Urine RBC (Auto) 2 Urine Casts (Auto) 0 U Epithel Cells (Auto) 4 Urine Bacteria (Auto) 238 COVID-19 ([facility]) 11/01/19 11/01/19 11/02/19 16:45 19:55 00:10 WBC RBC Hgb Hct MCV MCH MCHC RDW Plt Count MPV Absolute Neuts (auto) Neutrophils % Lymphocytes % Monocytes % Eosinophils % Basophils % Nucleated RBC % PT with INR INR Sodium 140 Potassium 4.2 Chloride 104 Carbon Dioxide 31 Anion Gap 4 L BUN 14.0 Creatinine 0.9 Est GFR (CKD-EPI)AfAm 80.55 Est GFR (CKD-EPI)NonAf 69.50 Random Glucose 108 H Hemoglobin A1c % Calcium 9.4 Phosphorus Magnesium Total Bilirubin 0.8 AST 30 ALT 29 Alkaline Phosphatase 83 LD Total 433 H Creatine Kinase 353 H Creatine Kinase Index 0.5 CK-MB (CK-2) 2.0 Troponin I < 0.02 < 0.02 B-Natriuretic Peptide 263.1 H Total Protein 8.0 Albumin 3.4 Triglycerides Cholesterol Total LDL Cholesterol HDL Cholesterol Urine Color Urine Appearance Urine pH Ur Specific [place] Urine Protein Urine Glucose (UA) Urine Ketones Urine Blood Urine Nitrite Urine Bilirubin Urine Urobilinogen Ur Leukocyte Esterase Urine WBC (Auto) Urine RBC (Auto) Urine Casts (Auto) U Epithel Cells (Auto) Urine Bacteria (Auto) COVID-19 ([facility]) Not detected 11/02/19 11/02/19 11/02/19 06:38 06:38 06:38 WBC 6.5 RBC 4.75 Hgb 13.7 Hct 42.1 MCV 88.6 MCH 28.9 MCHC 32.6 RDW 13.8 Plt Count 124 L MPV 12.8 H Absolute Neuts (auto) 3.5 Neutrophils % 52.9 Lymphocytes % 38.7 Monocytes % 7.2 Eosinophils % 0.7 Basophils % 0.5 Nucleated RBC % 0 PT with INR INR Sodium 138 Potassium 3.3 L Chloride 101 Carbon Dioxide 31 Anion Gap 7 L BUN 12.5 Creatinine 0.9 Est GFR (CKD-EPI)AfAm 80.55 Est GFR (CKD-EPI)NonAf 69.50 Random Glucose 137 H Hemoglobin A1c % 6.6 H Calcium 9.7 Phosphorus 3.4 Magnesium 2.1 Total Bilirubin 0.8 AST 26 ALT 28 Alkaline Phosphatase 93 LD Total Creatine Kinase Creatine Kinase Index CK-MB (CK-2) Troponin I B-Natriuretic Peptide Total Protein 8.8 H Albumin 3.7 Triglycerides Cholesterol Total LDL Cholesterol HDL Cholesterol Urine Color Urine Appearance Urine pH Ur Specific [place] Urine Protein Urine Glucose (UA) Urine Ketones Urine Blood Urine Nitrite Urine Bilirubin Urine Urobilinogen Ur Leukocyte Esterase Urine WBC (Auto) Urine RBC (Auto) Urine Casts (Auto) U Epithel Cells (Auto) Urine Bacteria (Auto) COVID-19 ([facility]) 11/02/19 11/02/19 06:38 10:30 WBC RBC Hgb Hct MCV MCH MCHC RDW Plt Count MPV Absolute Neuts (auto) Neutrophils % Lymphocytes % Monocytes % Eosinophils % Basophils % Nucleated RBC % PT with INR INR Sodium Potassium Chloride Carbon Dioxide Anion Gap BUN Creatinine Est GFR (CKD-EPI)AfAm Est GFR (CKD-EPI)NonAf Random Glucose Hemoglobin A1c % Calcium Phosphorus Magnesium Total Bilirubin AST ALT Alkaline Phosphatase LD Total Creatine Kinase Creatine Kinase Index CK-MB (CK-2) Troponin I B-Natriuretic Peptide Total Protein Albumin Triglycerides 107 Cholesterol 233 H Total LDL Cholesterol 104 H HDL Cholesterol 116 H Urine Color Yellow Urine Appearance Cloudy Urine pH 8.0 Ur Specific [place] 1.008 L Urine Protein Negative Urine Glucose (UA) Negative Urine Ketones Negative Urine Blood 1+ H Urine Nitrite Negative Urine Bilirubin Negative Urine Urobilinogen 0.2 Ur Leukocyte Esterase Negative Urine WBC (Auto) 11 Urine RBC (Auto) 6 Urine Casts (Auto) 0 U Epithel Cells (Auto) 7 Urine Bacteria (Auto) 162 COVID-19 ([facility]) Active Medications Generic Name Dose Route Start Last Admin Trade Name Freq PRN Reason Stop Dose Admin Amlodipine Besylate 10 mg 11/02/19 10:00 11/02/19 10:19 Norvasc - PO 10 mg DAILY MARIN Administration Enoxaparin Sodium 40 mg 11/02/19 10:00 11/02/19 10:19 Lovenox - SQ 40 mg DAILY MARIN Administration Hydrochlorothiazide 25 mg 11/02/19 10:00 11/02/19 10:19 Hctz - PO 25 mg DAILY MARIN Administration Lisinopril 20 mg 11/02/19 13:45 Prinivil PO DAILY MARIN Metoprolol Tartrate 50 mg 11/02/19 22:00 Lopressor - PO BID MARIN Nitroglycerin 1 inch 11/02/19 13:32 Nitro-Bid 2% Paste - TD Q6HPO PRN HYPERTENSION ASSESSMENT/PLAN: 59 Y F with a PMHx of HTN, Arthritis, Appendectomy, Obesity, NIDDM presents from PCP with hypertension, admitted for Hypertensive emergency #Hypertensive emergency - did not take her home Metoprolol 50 mg today. - In ER: BPs: >220/>90, EKG showing sinus bradycardia, CXR showing generalized haziness, PE showing systolic murmur, Ua +1 blood - patient reports that she is compliant with her medications, only home med is Metoprolol - BP is improving after PO meds: 50 metoprolol, 25 HCTZ, 10 amlodipine, 20 lisinopril and nicardipine drip, current BP around 160-180s/70-90s - Nicardipine drip is discontinued - ECHO: EF 55-60% - Continue with HCTZ, metoprolol, Lisinopril, amlodipine #DM - diet controlled - BGM + ISS FEN - no standing fluids - Continue to monitor electrolytes - diabetic/sodium controlled diet DVT PPX - lovenox sq Dispo - Continue to monitor in telemetry Visit type - Emergency Visit Emergency Visit: Yes ED Registration Date: 11/01/19 Care time: The patient presented to the Emergency Department on the above date and was hospitalized for further evaluation of their emergent condition. - New Patient This patient is new to me today: No - Critical Care Critical Care patient: No - Discharge Referral Referred to [facility] Med P.C.: No ATTENDING PHYSICIAN STATEMENT I saw and evaluated the patient. I reviewed the resident's note and discussed the case with the resident. I agree with the resident's findings and plan as documented. SUBJECTIVE: OBJECTIVE: ASSESSMENT AND PLAN:
[2019-11-02] MEDS ORDERED: LISINOPRIL 20 MG TABLET (FP) ONE (14:18)
[2019-11-02] MEDS: LISINOPRIL 20 MG TABLET (FP) PO SCH (14:26)
[2019-11-02 17:18] VITALS: BMI 35.2
[2019-11-02] MEDS: METOPROLOL TARTRATE 50 MG TABLET (FP) PO SCH (21:14)
[2019-11-03 06:57] LABS: BASO % 0.5 % (0-2.0); EOS % 1.1 % (0-4.5); HEMATOCRIT 39.3 % (32.4-45.2); HEMOGLOBIN 12.8 GM/dL (10.7-15.3); LYMPH % 47.8 % (8-40); MCHC 32.6 g/dl (32.0-36.0); MEAN CELL VOLUME 88.8 fl (80-96); MEAN PLT VOLUME 12.5 fl (7.5-11.1); NEUT % 41.6 % (42.8-82.8); PLATELET COUNT 115 K/MM3 (134-434); RBC 4.43 M/mm3 (3.60-5.2); RDW 13.9 % (11.6-15.6); WHITE BLOOD COUNT 6.2 K/mm3 (4.0-10.0)
[2019-11-03 07:23] LABS: ALBUMIN 3.2 g/dl (3.4-5.0); BILIRUBIN,TOTAL 0.7 mg/dL (0.2-1); BLOOD UREA NITROGEN 23.9 mg/dL (7-18); CALCIUM 9.3 mg/dL (8.5-10.1); CREATININE 1.2 mg/dL (0.55-1.3); MAGNESIUM 2.2 mg/dL (1.8-2.4); POTASSIUM 4.1 mmol/L (3.5-5.1); TOT PROT 7.7 g/dl (6.4-8.2)
[2019-11-03] MEDS ORDERED: PT OWN MED DRAWER 7, Y5N ONE (10:36)
[2019-11-03] MEDS: METOPROLOL TARTRATE 50 MG TABLET (FP) PO SCH (10:38)
[2019-11-03] MEDS: ENOXAPARIN NA (PORCINE) 40 MG/0.4 ML DISP.SYRIN SQ SCH (10:38)
[2019-11-03] MEDS: HYDROCHLOROTHIAZIDE 12.5 MG CAPSULE (FP) PO SCH (10:38)
[2019-11-03] MEDS: LISINOPRIL 20 MG TABLET (FP) PO SCH (10:38)
[2019-11-03] MEDS: amLODIPine BESYLATE 5 MG TABLET (FP) PO SCH (10:39)
[2019-11-03 10:45] VITALS: BP 154/77; PULSE 69; TEMP 97.7
--- NOTE | 2019-11-03 11:42 | DS ---
Physical Exam: SUBJECTIVE: Patient seen and examined OBJECTIVE: Vital Signs Period Temp Pulse Resp BP Sys/Veras Pulse Ox Last 24 Hr 97.7 F-98.1 F 56-69 15-18 139-172/64-94 59-100 PHYSICAL EXAM GENERAL: The patient is awake, alert, and fully oriented, in no acute distress. HEAD: Normal with no signs of trauma. EYES: PERRL, extraocular movements intact, sclera anicteric, conjunctiva clear. ENT: Ears normal, nares patent, oropharynx clear without exudates, moist mucous membranes. NECK: Trachea midline, full range of motion, supple. LUNGS: Breath sounds equal, clear to auscultation bilaterally, no wheezes, no crackles, no accessory muscle use. HEART: Regular rate and rhythm, S1, S2 without murmur, rub or gallop. ABDOMEN: Soft, nontender, nondistended, normoactive bowel sounds, no guarding, no rebound, no hepatosplenomegaly, no masses. EXTREMITIES: 2+ pulses, warm, well-perfused, no edema. NEUROLOGICAL: Cranial nerves II through XII grossly intact. Normal speech, gait not observed. PSYCH: Normal mood, normal affect. SKIN: Warm, dry, normal turgor, no rashes or lesions noted. LABS Laboratory Results - last 24 hr 11/01/19 11/02/19 11/03/19 19:55 22:26 05:40 WBC 6.2 RBC 4.43 Hgb 12.8 Hct 39.3 MCV 88.8 MCH 29.0 MCHC 32.6 RDW 13.9 Plt Count 115 L MPV 12.5 H Absolute Neuts (auto) 2.6 Neutrophils % 41.6 L D Lymphocytes % 47.8 H D Monocytes % 9.0 Eosinophils % 1.1 Basophils % 0.5 Nucleated RBC % 0 Sodium Potassium Chloride Carbon Dioxide Anion Gap BUN Creatinine Est GFR (CKD-EPI)AfAm Est GFR (CKD-EPI)NonAf POC Glucometer 118 Random Glucose Calcium Phosphorus Magnesium Total Bilirubin AST ALT Alkaline Phosphatase Total Protein Albumin COVID-19 ([facility]) Not detected 11/03/19 11/03/19 05:40 05:42 WBC RBC Hgb Hct MCV MCH MCHC RDW Plt Count MPV Absolute Neuts (auto) Neutrophils % Lymphocytes % Monocytes % Eosinophils % Basophils % Nucleated RBC % Sodium 139 Potassium 4.1 Chloride 101 Carbon Dioxide 32 Anion Gap 6 L BUN 23.9 H Creatinine 1.2 Est GFR (CKD-EPI)AfAm 56.89 Est GFR (CKD-EPI)NonAf 49.08 POC Glucometer 121 Random Glucose 115 H Calcium 9.3 Phosphorus 5.0 H Magnesium 2.2 Total Bilirubin 0.7 AST 23 ALT 24 Alkaline Phosphatase 77 Total Protein 7.7 Albumin 3.2 L COVID-19 ([facility]) HOSPITAL COURSE: 59yo lady with PMHx of HTN and lifestyle-controlled DM sent by PCP office for elevated BP and admitted for hypertensive emergency, CXR showed flush pulmonary edema. Pt was asymptomatic. pt was treated with nicardipine drip, then was started on oral antihypertensive medications. Pt was placed on tele monitoring, ECHO was obtained that showed EF 55-60% with LVH. Pt was counseled about diet, exercise and medications compliance. Advised to monitor BP at home and follow up with her PCP within a week. Date of Admission:11/01/19 Date of Discharge: 11/03/19 Minutes to complete discharge: 35 Discharge Summary Problems reviewed: Yes Reason For Visit: HYPERTENSION Current Active Problems Hypertension (Acute) Condition: Improved - Instructions Diet, Activity, Other Instructions: you were admitted here because you were found to have elevated blood pressure. Your blood pressure has improved with medications. You need to start taking the following new medications: 1. Amlodipine 10mg daily 2. Hydrochlorthiaziade (HCTZ) 25mg daily 3. metoprolol tartrate 50mg bid 4. lisinopril 20mg daily Continue taking metformin 500mg daily Please check you blood pressure at home daily. Avoid excessive salt intake. Please, schedule a follow up with your primary care provider to address elevated blood pressure, cholesterol and complete your medical follow up If you feel worsening of your symptoms please call 911 or come to emergency department Referrals: Fco Peguero MD [Primary Care Provider] - Disposition: HOME - Home Medications Comprehensive Discharge Medication List: Ambulatory Orders Metformin HCl [Glucophage] 500 mg PO DAILY 11/01/19 Amlodipine Besylate [Norvasc -] 10 mg PO DAILY 10 Days #20 tablet 11/03/19 Hydrochlorothiazide [Hctz -] 25 mg PO DAILY #30 cap 11/03/19 Lisinopril [Prinivil] 20 mg PO DAILY #30 tablet 09/19/20 Metoprolol Tartrate [Lopressor -] 50 mg PO BID #60 tablet 11/03/19 This patient is new to me today: No Emergency Visit: Yes ED Registration Date: 11/01/19 Care time: The patient presented to the Emergency Department on the above date and was hospitalized for further evaluation of their emergent condition. Critical Care patient: No - Discharge Referral [facility]erred to [facility] Med P.C.: No
== END 2019-11-03 12:57 | disposition home or self-care (01) | DRG 305 ==
LOC: JER 12:08 → JERBED 18:35 → J4W 11-02 16:22
PROVIDERS: ADMIT Internal Medicine; ATTEND Student in an Organized Health Care Education/Training Program
DX: I16.1 Hypertensive emergency (principal); E11.9 Type 2 diabetes mellitus without complications; E66.9 Obesity, unspecified; Z68.35 Body mass index [BMI] 35.0-35.9, adult; I10 Essential (primary) hypertension; R00.1 Bradycardia, unspecified
CPT/HCPCS: 36415; 71045-TC-FY; 80053; 80061; 81003; 82550; 82553; 82962; 83036; 83615; 83721; 83735; 83880; 84100; 84484; 85025; 85027; 85610; 93005; 93010; 93306-TC; 99285-25; U0003